=== PATIENT | female | born 1960 | race Caucasian/White ===

== ENCOUNTER 2017-11-15 00:01 | Inpatient (IN) | payer MEDICAID ==
[2017-11-15] VITALS (87 sets, daily range): BP systolic 119–232; BP diastolic 67–124
[~2017-11-15] VITALS: Ht 165.1 cm; Wt 94.6 kg
[2017-11-15] MEDS ORDERED: PIPERACILLIN/TAZ 3.375G PREMIX 50 ML IV ONE (00:30)
[2017-11-15] MEDS ORDERED: VANCOMYCIN 1 G PREMIX 200 ML IV ONE (00:30)
[2017-11-15] MEDS ORDERED: SODIUM CHLORIDE 0.9% 1000ML BAG (SEPSIS BOLUS) IV ONE (00:30)
[2017-11-15] MEDS ORDERED: PROPOFOL 10MG/ML 100ML 100 ML IV SCH (00:45)
[2017-11-15 00:49] LABS: HEMATOCRIT. 42.5 % (36.0-48.0); HEMOGLOBIN. 13.3 g/dL (12.0-16.0); MEAN CORPUSCULAR HEMOGLOBIN 28.2 pg (28.0-32.0); MEAN CORPUSCULAR VOLUME 90.4 fL (81.0-99.0); MEAN PLATELET VOLUME 9.1 fl (7.4-10.4); PLATELET 354 x1000/uL (130-400); RED CELL DISTRIBUTION WIDTH 14.5 % (11.6-14.6)
[2017-11-15 00:51] LABS: CHLORIDE 98 mEq/L (98-107)
[2017-11-15 00:54] LABS: INR 1.1
[2017-11-15 00:55] LABS: ETHANOL BLOOD < 10 mg/dL
[2017-11-15] MEDS ORDERED: SODIUM BICARBONATE 7.5% 0.9 MEQ/ML 50ML SYR IV ONE (01:00)
[2017-11-15] MEDS ORDERED: EPINEPHRINE 0.1MG/ML (1:10,000) 10ML SYR ONE (01:00)
[2017-11-15 01:09] LABS: CLARITY URINE CLOUDY (CLEAR); COLOR URINE YELLOW (YELLOW); KETONES URINE NEGATIVE (NEGATIVE); LEUKOCYTE ESTERASE URINE NEGATIVE (NEGATIVE); NITRITE URINE NEGATIVE (NEGATIVE); OCCULT BLOOD URINE 2+ (NEGATIVE); PROTEIN URINE 4+ (NEGATIVE); SPECIFIC GRAVITY URINE 1.016 (1.005-1.030); UROBILINOGEN URINE 0.2 E.U./dL (0.2-1.0)
[2017-11-15 01:14] LABS: BG BASE EXCESS -12.8 mmol/L (-2.0-2.0); BG CARBOXYHEMOGLOBIN 0.3 % (0.5-1.5); BG DEOXYHEMOGLOBIN 0.7 % (0.0-5.0); BG FRACTION INSPIRED OXYGEN 100; BG HCO3 ACT 16.9 mmol/L (22.0-26.0); BG METHEMOGLOBIN 0.5 % (0.0-1.5); BG OXYGEN SATURATION 99.3 % (92.0-98.5); BG OXYHEMOGLOBIN 98.5 % (94.0-97.0); BG PCO2 53.8 mmHg (35.0-45.0); BG PH 7.114 (7.350-7.450); BG PO2 340.9 mmHg (75.0-100.0); BG SAMPLE SITE RIGHT RADIAL; BG TIDAL VOLUME(mL) 500 mL; BG TOTAL HEMOGLOBIN 14.1 g/dL (12.0-18.0); BG VENT MODE VENT - A/C; BG VENT RATE 14 set
[2017-11-15 01:18] LABS: PLATELET ESTIMATE NORMAL
[2017-11-15 01:20] LABS: *AMPHETAMINES SCREEN URINE NEGATIVE (NEGATIVE); *BARBITURATES SCREEN URINE NEGATIVE (NEGATIVE); *BENZODIAZEPINES SCREEN URINE NEGATIVE (NEGATIVE); *COCAINE SCREEN URINE NEGATIVE (NEGATIVE); METHADONE URINE SCREEN NEGATIVE (NEGATIVE); OPIATES URINE SCREEN NEGATIVE (NEGATIVE)
[2017-11-15 01:21] LABS: CANNABINOID URINE SCREEN NEGATIVE (NEGATIVE); PHENCYCLIDINE URINE SCREEN NEGATIVE (NEGATIVE)
[2017-11-15] MEDS ORDERED: PIPERACILLIN/TAZOBACTAM 2.25 G in DEXTROSE 5% WATER 50 ML IV SCH (06:00)
[2017-11-15] MEDS ORDERED: ONDANSETRON HCL 4MG/2ML VIAL IV PRN (06:00)
[2017-11-15] MEDS ORDERED: DEXTROSE 50% WATER 50ML SYRINGE IV PRN ×3 (06:00→09:15)
[2017-11-15] MEDS ORDERED: METF500T6 MT (06:37)
[2017-11-15] MEDS ORDERED: TRIA1TAB92 MT (06:38)
[2017-11-15] MEDS ORDERED: LISI-604 MT (06:39)
[2017-11-15] MEDS ORDERED: METO25TA6 MT (06:39)
[2017-11-15] MEDS ORDERED: RANI150T7 MT (06:39)
[2017-11-15] MEDS ORDERED: FURO20TA4 MT (06:39)
[2017-11-15] MEDS ORDERED: ALBU6.7H IH (06:40)
[2017-11-15 07:50] LABS: BG BASE EXCESS 1.2 mmol/L (-2.0-2.0); BG CARBOXYHEMOGLOBIN 0.4 % (0.5-1.5); BG DEOXYHEMOGLOBIN 1.8 % (0.0-5.0); BG FRACTION INSPIRED OXYGEN 65; BG HCO3 ACT 28.8 mmol/L (22.0-26.0); BG METHEMOGLOBIN 0.4 % (0.0-1.5); BG OXYGEN SATURATION 98.2 % (92.0-98.5); BG OXYHEMOGLOBIN 97.4 % (94.0-97.0); BG PCO2 57.9 mmHg (35.0-45.0); BG PH 7.315 (7.350-7.450); BG PO2 124.6 mmHg (75.0-100.0); BG SAMPLE SITE RIGHT RADIAL; BG TIDAL VOLUME(mL) 500 mL; BG TOTAL HEMOGLOBIN 15.6 g/dL (12.0-18.0); BG VENT MODE VENT - A/C; BG VENT RATE 14 set
[2017-11-15] MEDS ORDERED: INSULIN LISPRO 100 UNITS/ML SUBCUT SCH (08:00)
[2017-11-15] MEDS ORDERED: BLOOD SUGAR DIAGNOSTIC STRIP TEST SCH (08:00)
[2017-11-15] MEDS: DEXT 5%/0.45% NACL 1000ML 1,000 ML IV SCH (08:22)
[2017-11-15] MEDS: PANTOPRAZOLE SODIUM 40 MG/VIAL IV SCH (08:22)
[2017-11-15] MEDS: VANCOMYCIN 1 G PREMIX 200 ML IV SCH ×2 (08:22→20:18)
[2017-11-15] MEDS: HYDRALAZINE 20MG/ML VIAL IV PRN (08:23)
[2017-11-15] MEDS ORDERED: PIPERACILLIN/TAZ 3.375G PREMIX 50 ML IV SCH (08:30)
[2017-11-15] MEDS ORDERED: MIDAZOLAM HCL 100 MG in DEXT 5% WATER 80 ML IV PRN (09:15)
[2017-11-15] MEDS ORDERED: NICARDIPINE 100 MG in SODIUM CHLORIDE 0.9% 60 ML IV PRN (09:15)
[2017-11-15] MEDS ORDERED: ENOXAPARIN 30MG/0.3ML SYR SUBCUT SCH (10:00)
[2017-11-15] MEDS: BLOOD SUGAR DIAGNOSTIC STRIP TEST SCH ×14 (10:00→23:00)
[2017-11-15] MEDS: NICARDIPINE 50 MG in SODIUM CHLORIDE 0.9% 230 ML IV PRN (10:32)
[2017-11-15] MEDS: FENTANYL CITRATE/PF 500 MCG in SODIUM CHLORIDE 0.9% 40 ML IV PRN (10:34)
[2017-11-15 10:57] LABS: MEAN CORPUSCULAR HEMOGLOBIN 28.1 pg (28.0-32.0); MEAN CORPUSCULAR VOLUME 86.5 fL (81.0-99.0); RED BLOOD CELL COUNT 5.54 mill/uL (4.2-5.4); RED CELL DISTRIBUTION WIDTH 14.3 % (11.6-14.6)
[2017-11-15] MEDS ORDERED: INSULIN REGULAR (DRIP) 100 UNITS in SODIUM CHLORIDE 0.9% 100 ML IV SCH (11:00)
[2017-11-15] MEDS: METOCLOPRAMIDE HCL 10MG/2ML VIAL IV SCH ×2 (11:04→18:15)
[2017-11-15 11:10] LABS: CHLORIDE 101 mEq/L (98-107)
[2017-11-15 11:20] LABS: HEMOGLOBIN. 15.3 g/dL (12.0-16.0)
[2017-11-15 11:42] LABS: HEPATITIS B SURFACE ANTIGEN NEGATIVE
[2017-11-15] MEDS: ACETAMINOPHEN 650MG SUPP PR PRN ×2 (12:01→18:15)
[2017-11-15 12:10] LABS: HEPATITIS B CORE AB IGM NEGATIVE
[2017-11-15 12:11] LABS: HEPATITIS A AB IGM NEGATIVE (NEGATIVE)
[2017-11-15 12:25] LABS: PLATELET 265 x1000/uL (130-400)
[2017-11-15 12:31] LABS: PLATELET ESTIMATE NORMAL
[2017-11-15] MEDS: ENOXAPARIN 30MG/0.3ML SYR SUBCUT SCH ×2 (13:00→23:30)
[2017-11-15] MEDS ORDERED: DILTIAZEM HCL 5MG/ML 5ML VIAL IV NR (13:30)
[2017-11-15] MEDS ORDERED: ETOMIDATE 2MG/ML 10ML VIAL IV ONE (13:45)
[2017-11-15] MEDS ORDERED: NORMAL SALINE 0.9% 10 ML SYR ONE (13:45)
[2017-11-15] MEDS ORDERED: SUCCINYLCHOLINE CHLORIDE 200MG/10ML VIAL IV ONE (13:45)
[2017-11-15 15:06] LABS: AMMONIA 39 uMol/L (<32)
[2017-11-15] MEDS: PIPERACILLIN/TAZ 3.375G PREMIX 50 ML IV SCH (18:15)
[2017-11-16] VITALS (69 sets, daily range): BP systolic 104–168; BP diastolic 54–84
[2017-11-16] MEDS: PIPERACILLIN/TAZ 3.375G PREMIX 50 ML IV SCH ×5 (00:54→23:52)
[2017-11-16] MEDS: METOCLOPRAMIDE HCL 10MG/2ML VIAL IV SCH ×5 (00:55→23:51)
[2017-11-16] MEDS: ACETAMINOPHEN 650MG SUPP PR PRN ×2 (00:56→08:41)
[2017-11-16] MEDS: BLOOD SUGAR DIAGNOSTIC STRIP TEST SCH ×12 (01:00→23:49)
[2017-11-16] MEDS: DEXT 5%/0.45% NACL 1000ML 1,000 ML IV SCH (05:12)
[2017-11-16 05:55] LABS: BASOPHILS % 0.1 % (0.0-2.0); HEMATOCRIT. 42.1 % (36.0-48.0); HEMOGLOBIN. 13.8 g/dL (12.0-16.0); LYMPHOCYTES % 7.7 % (20.0-50.0); MEAN CORPUSCULAR HEMOGLOBIN 28.1 pg (28.0-32.0); MEAN CORPUSCULAR VOLUME 86.1 fL (81.0-99.0); MONOCYTES % 4.2 % (2.0-8.0); PLATELET 271 x1000/uL (130-400); RED BLOOD CELL COUNT 4.89 mill/uL (4.2-5.4); RED CELL DISTRIBUTION WIDTH 14.7 % (11.6-14.6)
[2017-11-16] MEDS: PANTOPRAZOLE SODIUM 40 MG/VIAL IV SCH (08:41)
[2017-11-16] MEDS: VANCOMYCIN 1 G PREMIX 200 ML IV SCH (08:41)
[2017-11-16 08:58] LABS: BG BASE EXCESS 2.8 mmol/L (-2.0-2.0); BG CARBOXYHEMOGLOBIN 0.6 % (0.5-1.5); BG DEOXYHEMOGLOBIN 1.2 % (0.0-5.0); BG FRACTION INSPIRED OXYGEN 60; BG METHEMOGLOBIN 0.5 % (0.0-1.5); BG OXYGEN SATURATION 98.8 % (92.0-98.5); BG OXYHEMOGLOBIN 97.7 % (94.0-97.0); BG PCO2 63.9 mmHg (35.0-45.0); BG PH 7.304 (7.350-7.450); BG PO2 142.2 mmHg (75.0-100.0); BG SAMPLE SITE LEFT RADIAL; BG TIDAL VOLUME(mL) 500 mL; BG TOTAL HEMOGLOBIN 14.5 g/dL (12.0-18.0); BG VENT MODE VENT - A/C; BG VENT RATE 14 set
[2017-11-16] MEDS ORDERED: DEXTROSE 50% WATER 50ML SYRINGE IV PRN (09:15)
[2017-11-16] MEDS: INSULIN GLARGINE UD 100 UNITS/ML SYR SUBCUT SCH (11:38)
[2017-11-16] MEDS ORDERED: INSULIN LISPRO 100 UNITS/ML SUBCUT SCH (13:20)
[2017-11-16] MEDS: VANCOMYCIN 750 MG PREMIX 150 ML IV SCH ×2 (15:14→22:33)
[2017-11-16] MEDS ORDERED: PHENYTOIN SODIUM 1,000 MG in SODIUM CHLORIDE 0.9% 100 ML IV NR (20:30)
[2017-11-16] MEDS: NICARDIPINE 50 MG in SODIUM CHLORIDE 0.9% 230 ML IV PRN (20:44)
[2017-11-16] MEDS: FENTANYL CITRATE/PF 500 MCG in SODIUM CHLORIDE 0.9% 40 ML IV PRN (20:45)
[2017-11-16] MEDS: INSULIN LISPRO 100 UNITS/ML SUBCUT SCH (23:53)
[2017-11-17] VITALS (72 sets, daily range): BP systolic 101–175; BP diastolic 57–108
[2017-11-17] MEDS: ACETAMINOPHEN 650MG SUPP PR PRN ×2 (01:59→12:49)
[2017-11-17 04:12] LABS: CHLORIDE 102 mEq/L (98-107)
[2017-11-17 04:33] LABS: VANCOMYCIN TROUGH 21.5 ug/mL (5.0-10.0)
[2017-11-17] MEDS: INSULIN LISPRO 100 UNITS/ML SUBCUT SCH ×3 (06:00→18:00)
[2017-11-17] MEDS: PIPERACILLIN/TAZ 3.375G PREMIX 50 ML IV SCH ×3 (06:01→17:59)
[2017-11-17] MEDS: BLOOD SUGAR DIAGNOSTIC STRIP TEST SCH ×3 (06:02→18:00)
[2017-11-17] MEDS: VANCOMYCIN 750 MG PREMIX 150 ML IV SCH (06:04)
[2017-11-17] MEDS: METOCLOPRAMIDE HCL 10MG/2ML VIAL IV SCH ×3 (06:04→17:59)
[2017-11-17] MEDS: DEXT 5%/0.45% NACL 1000ML 1,000 ML IV SCH ×2 (06:05→17:45)
[2017-11-17 08:23] LABS: BG BASE EXCESS 5.9 mmol/L (-2.0-2.0); BG CARBOXYHEMOGLOBIN 0.1 % (0.5-1.5); BG FRACTION INSPIRED OXYGEN 50; BG HCO3 ACT 32.9 mmol/L (22.0-26.0); BG METHEMOGLOBIN 0.2 % (0.0-1.5); BG OXYHEMOGLOBIN 97.7 % (94.0-97.0); BG PCO2 59.5 mmHg (35.0-45.0); BG PH 7.361 (7.350-7.450); BG PO2 116.8 mmHg (75.0-100.0); BG SAMPLE SITE RIGHT RADIAL; BG TIDAL VOLUME(mL) 500 mL; BG TOTAL HEMOGLOBIN 12.7 g/dL (12.0-18.0); BG VENT MODE VENT - A/C; BG VENT RATE 16 set
[2017-11-17] MEDS ORDERED: IOHEXOL-350 100 ML BOTTLE ONE (09:40)
[2017-11-17] MEDS: PANTOPRAZOLE SODIUM 40 MG/VIAL IV SCH (09:48)
[2017-11-17] MEDS: INSULIN GLARGINE UD 100 UNITS/ML SYR SUBCUT SCH (09:49)
[2017-11-17] MEDS ORDERED: PHENYTOIN SODIUM 800 MG in SODIUM CHLORIDE 0.9% 100 ML IV NR (14:00)
[2017-11-17] MEDS: FENTANYL CITRATE/PF 500 MCG in SODIUM CHLORIDE 0.9% 40 ML IV PRN (18:26)
[2017-11-17] MEDS ORDERED: PHENYTOIN SODIUM 100MG/2ML VIAL IV SCH (21:00)
[2017-11-17] MEDS: PHENYTOIN SODIUM 300MG in SODIUM CHLORIDE 0.9% 50ML IV SCH (22:49)
[2017-11-18] VITALS (69 sets, daily range): BP systolic 111–205; BP diastolic 56–153
[2017-11-18] MEDS: METOCLOPRAMIDE HCL 10MG/2ML VIAL IV SCH ×4 (00:32→18:05)
[2017-11-18] MEDS: PIPERACILLIN/TAZ 3.375G PREMIX 50 ML IV SCH ×4 (00:32→18:05)
[2017-11-18] MEDS: BLOOD SUGAR DIAGNOSTIC STRIP TEST SCH ×4 (00:46→17:46)
[2017-11-18] MEDS: DEXT 5%/0.45% NACL 1000ML 1,000 ML IV SCH (05:21)
[2017-11-18 05:28] LABS: BASOPHILS % 0.2 % (0.0-2.0); EOSINOPHILS % 0.2 % (0.0-5.0); HEMATOCRIT. 33.9 % (36.0-48.0); HEMOGLOBIN. 11.3 g/dL (12.0-16.0); LYMPHOCYTES % 9.8 % (20.0-50.0); MEAN CORPUSCULAR HEMOGLOBIN 28.7 pg (28.0-32.0); MEAN CORPUSCULAR VOLUME 86.1 fL (81.0-99.0); MEAN PLATELET VOLUME 9.1 fl (7.4-10.4); MONOCYTES % 5.3 % (2.0-8.0); NEUTROPHILS % 84.5 % (40.0-76.0); PLATELET 215 x1000/uL (130-400); RED BLOOD CELL COUNT 3.94 mill/uL (4.2-5.4); RED CELL DISTRIBUTION WIDTH 14.7 % (11.6-14.6)
[2017-11-18] MEDS: INSULIN LISPRO 100 UNITS/ML SUBCUT SCH ×4 (05:33→17:46)
[2017-11-18 05:46] LABS: CHLORIDE 103 mEq/L (98-107)
[2017-11-18] MEDS: PANTOPRAZOLE SODIUM 40 MG/VIAL IV SCH (10:00)
[2017-11-18] MEDS: INSULIN GLARGINE UD 100 UNITS/ML SYR SUBCUT SCH (10:01)
[2017-11-18] MEDS: NICARDIPINE 50 MG in SODIUM CHLORIDE 0.9% 230 ML IV PRN ×2 (11:12→21:25)
[2017-11-18] MEDS ORDERED: MORPHINE SULFATE 4 MG/ML CPJ (NOT FOR IM USE) IV PRN (12:45)
[2017-11-18] MEDS: PHENYTOIN SODIUM 300MG in SODIUM CHLORIDE 0.9% 50ML IV SCH (21:04)
[2017-11-19] VITALS (80 sets, daily range): BP systolic 133–183; BP diastolic 67–99
[2017-11-19] MEDS: METOCLOPRAMIDE HCL 10MG/2ML VIAL IV SCH ×5 (01:01→23:12)
[2017-11-19] MEDS: PIPERACILLIN/TAZ 3.375G PREMIX 50 ML IV SCH ×5 (01:01→23:12)
[2017-11-19] MEDS: DEXT 5%/0.45% NACL 1000ML 1,000 ML IV SCH (01:02)
[2017-11-19] MEDS: INSULIN LISPRO 100 UNITS/ML SUBCUT SCH ×4 (05:10→17:10)
[2017-11-19] MEDS: BLOOD SUGAR DIAGNOSTIC STRIP TEST SCH ×5 (05:11→23:45)
[2017-11-19 07:56] LABS: BG BASE EXCESS 4.1 mmol/L (-2.0-2.0); BG CARBOXYHEMOGLOBIN 0.6 % (0.5-1.5); BG FRACTION INSPIRED OXYGEN 50; BG HCO3 ACT 29.5 mmol/L (22.0-26.0); BG METHEMOGLOBIN 0.3 % (0.0-1.5); BG OXYHEMOGLOBIN 97.1 % (94.0-97.0); BG PCO2 47.7 mmHg (35.0-45.0); BG PH 7.409 (7.350-7.450); BG PO2 107.5 mmHg (75.0-100.0); BG SAMPLE SITE RIGHT RADIAL; BG TIDAL VOLUME(mL) 500 mL; BG TOTAL HEMOGLOBIN 11.8 g/dL (12.0-18.0); BG VENT MODE VENT - A/C; BG VENT RATE 16 set
[2017-11-19] MEDS: PANTOPRAZOLE SODIUM 40 MG/VIAL IV SCH (08:35)
[2017-11-19] MEDS: NICARDIPINE 50 MG in SODIUM CHLORIDE 0.9% 230 ML IV PRN ×3 (08:37→20:11)
[2017-11-19] MEDS ORDERED: IPRATROPIUM/ALBUTEROL 0.5-3(2.5)MG/3ML NEB HHN PRN (08:45)
[2017-11-19] MEDS ORDERED: BISACODYL 5MG TABLET PO NR (09:10)
[2017-11-19 10:15] LABS: BASOPHILS % 0.4 % (0.0-2.0); EOSINOPHILS % 0.5 % (0.0-5.0); HEMATOCRIT. 34.2 % (36.0-48.0); HEMOGLOBIN. 11.4 g/dL (12.0-16.0); LYMPHOCYTES % 10.9 % (20.0-50.0); MEAN CORPUSCULAR HEMOGLOBIN 28.2 pg (28.0-32.0); MEAN CORPUSCULAR VOLUME 85.1 fL (81.0-99.0); MEAN PLATELET VOLUME 8.8 fl (7.4-10.4); MONOCYTES % 7.6 % (2.0-8.0); NEUTROPHILS % 80.6 % (40.0-76.0); PLATELET 280 x1000/uL (130-400); RED BLOOD CELL COUNT 4.02 mill/uL (4.2-5.4); RED CELL DISTRIBUTION WIDTH 14.3 % (11.6-14.6)
[2017-11-19 10:43] LABS: CHLORIDE 105 mEq/L (98-107)
[2017-11-19] MEDS: IPRATROPIUM/ALBUTEROL 0.5-3(2.5)MG/3ML NEB HHN SCH ×4 (11:19→23:43)
[2017-11-19] MEDS: ACETYLCYSTEINE 100MG/ML 10% VIAL 4ML INH SCH (11:20)
[2017-11-19] MEDS ORDERED: POTASSIUM CHLORIDE 20MEQ/PACKET PO SCH (11:45)
[2017-11-19] MEDS: DOCUSATE SODIUM SUGAR FREE 100MG/10ML UDC NG SCH (11:53)
[2017-11-19] MEDS: INSULIN GLARGINE UD 100 UNITS/ML SYR SUBCUT SCH (11:55)
[2017-11-19] MEDS: ACETAMINOPHEN 650MG/20.3ML UDC PO PRN (17:02)
[2017-11-19] MEDS: PHENYTOIN SODIUM 300MG in SODIUM CHLORIDE 0.9% 50ML IV SCH (20:55)
[2017-11-19] MEDS: HYDRALAZINE 20MG/ML VIAL IV PRN (23:45)
[2017-11-20] VITALS (83 sets, daily range): BP systolic 114–180; BP diastolic 57–98
[2017-11-20] MEDS ORDERED: ENALAPRIL 2.5MG/2ML VIAL 2ML IV PRN
[2017-11-20] MEDS: INSULIN LISPRO 100 UNITS/ML SUBCUT SCH ×5 (00:01→23:49)
[2017-11-20] MEDS: LABETALOL 5MG/ML SYR 20 MG/4 ML SYRINGE IV PRN (00:57)
[2017-11-20] MEDS: NICARDIPINE 50 MG in SODIUM CHLORIDE 0.9% 230 ML IV PRN ×4 (00:58→11:56)
[2017-11-20] MEDS: IPRATROPIUM/ALBUTEROL 0.5-3(2.5)MG/3ML NEB HHN SCH ×5 (04:04→20:39)
[2017-11-20] MEDS: PIPERACILLIN/TAZ 3.375G PREMIX 50 ML IV SCH ×2 (05:08→11:56)
[2017-11-20] MEDS: ACETAMINOPHEN 650MG SUPP PR PRN (05:08)
[2017-11-20] MEDS: METOCLOPRAMIDE HCL 10MG/2ML VIAL IV SCH ×4 (05:08→23:49)
[2017-11-20 06:09] LABS: BASOPHILS % 0.3 % (0.0-2.0); EOSINOPHILS % 0.1 % (0.0-5.0); HEMATOCRIT. 35.4 % (36.0-48.0); HEMOGLOBIN. 11.4 g/dL (12.0-16.0); LYMPHOCYTES % 7.5 % (20.0-50.0); MEAN CORPUSCULAR HEMOGLOBIN 27.5 pg (28.0-32.0); MEAN CORPUSCULAR VOLUME 85.4 fL (81.0-99.0); MEAN PLATELET VOLUME 9.2 fl (7.4-10.4); MONOCYTES % 4.3 % (2.0-8.0); NEUTROPHILS % 87.8 % (40.0-76.0); PLATELET 296 x1000/uL (130-400); RED BLOOD CELL COUNT 4.15 mill/uL (4.2-5.4); RED CELL DISTRIBUTION WIDTH 14.3 % (11.6-14.6)
[2017-11-20 06:23] LABS: CHLORIDE 105 mEq/L (98-107)
[2017-11-20 06:32] LABS: PHOSPHORUS 2.7 mg/dL (2.5-4.9)
[2017-11-20] MEDS: BLOOD SUGAR DIAGNOSTIC STRIP TEST SCH ×4 (06:49→23:49)
[2017-11-20] MEDS: ACETYLCYSTEINE 100MG/ML 10% VIAL 4ML INH SCH ×2 (07:59→15:37)
[2017-11-20] MEDS ORDERED: PHENYTOIN SODIUM IV SCH (09:00)
[2017-11-20] MEDS ORDERED: SODIUM CHLORIDE 0.9% IV SCH (09:00)
[2017-11-20] MEDS: DOCUSATE SODIUM SUGAR FREE 100MG/10ML UDC NG SCH (10:02)
[2017-11-20] MEDS: PANTOPRAZOLE SODIUM 40 MG/VIAL IV SCH (10:02)
[2017-11-20] MEDS: INSULIN GLARGINE UD 100 UNITS/ML SYR SUBCUT SCH (10:03)
[2017-11-20] MEDS: ENALAPRIL 1.25MG/ML VIAL 1ML IV SCH ×3 (10:55→20:51)
[2017-11-20] MEDS: HYDRALAZINE 20MG/ML VIAL IV SCH ×3 (11:56→23:49)
[2017-11-20] MEDS: CEFTRIAXONE 1 G PREMIX 50 ML IV SCH (14:16)
[2017-11-20] MEDS: METRONIDAZOLE 500MG TABLET PO SCH ×2 (14:17→20:51)
[2017-11-20] MEDS: PHENYTOIN SODIUM 300MG in SODIUM CHLORIDE 0.9% 50ML IV SCH (20:51)
[2017-11-21] VITALS (73 sets, daily range): BP systolic 108–192; BP diastolic 58–94
[2017-11-21] MEDS: IPRATROPIUM/ALBUTEROL 0.5-3(2.5)MG/3ML NEB HHN SCH ×6 (00:08→19:48)
[2017-11-21] MEDS: ACETYLCYSTEINE 100MG/ML 10% VIAL 4ML INH SCH ×3 (00:08→16:32)
[2017-11-21] MEDS: ENALAPRIL 1.25MG/ML VIAL 1ML IV SCH ×4 (03:10→21:54)
[2017-11-21 05:34] LABS: BASOPHILS % 0.4 % (0.0-2.0); EOSINOPHILS % 0.9 % (0.0-5.0); HEMATOCRIT. 36.1 % (36.0-48.0); HEMOGLOBIN. 11.6 g/dL (12.0-16.0); LYMPHOCYTES % 12.2 % (20.0-50.0); MEAN CORPUSCULAR HEMOGLOBIN 27.9 pg (28.0-32.0); MEAN CORPUSCULAR VOLUME 86.5 fL (81.0-99.0); MONOCYTES % 6.5 % (2.0-8.0); PLATELET 357 x1000/uL (130-400); RED BLOOD CELL COUNT 4.17 mill/uL (4.2-5.4); RED CELL DISTRIBUTION WIDTH 14.8 % (11.6-14.6)
[2017-11-21 05:41] LABS: CHLORIDE 109 mEq/L (98-107)
[2017-11-21 05:52] LABS: CREATINE KINASE 818 IU/L (26-192)
[2017-11-21] MEDS: INSULIN LISPRO 100 UNITS/ML SUBCUT SCH ×3 (06:00→17:50)
[2017-11-21] MEDS: HYDRALAZINE 20MG/ML VIAL IV SCH ×3 (06:14→17:54)
[2017-11-21] MEDS: BLOOD SUGAR DIAGNOSTIC STRIP TEST SCH ×3 (06:14→17:49)
[2017-11-21] MEDS: METOCLOPRAMIDE HCL 10MG/2ML VIAL IV SCH ×3 (06:14→17:53)
[2017-11-21 08:19] LABS: BG BASE EXCESS 3.2 mmol/L (-2.0-2.0); BG CARBOXYHEMOGLOBIN 0.2 % (0.5-1.5); BG DEOXYHEMOGLOBIN 2.3 % (0.0-5.0); BG FRACTION INSPIRED OXYGEN 40; BG HCO3 ACT 30.1 mmol/L (22.0-26.0); BG OXYGEN SATURATION 97.7 % (92.0-98.5); BG OXYHEMOGLOBIN 97.5 % (94.0-97.0); BG PCO2 54.7 mmHg (35.0-45.0); BG PH 7.359 (7.350-7.450); BG PO2 105.2 mmHg (75.0-100.0); BG SAMPLE SITE RIGHT RADIAL; BG TIDAL VOLUME(mL) 500 mL; BG TOTAL HEMOGLOBIN 15.6 g/dL (12.0-18.0); BG VENT MODE VENT - A/C; BG VENT RATE 16 set
[2017-11-21] MEDS: METRONIDAZOLE 500MG TABLET PO SCH ×2 (08:40→21:54)
[2017-11-21] MEDS: DOCUSATE SODIUM SUGAR FREE 100MG/10ML UDC NG SCH (08:40)
[2017-11-21] MEDS: PANTOPRAZOLE SODIUM 40 MG/VIAL IV SCH (08:40)
[2017-11-21] MEDS: INSULIN GLARGINE UD 100 UNITS/ML SYR SUBCUT SCH (10:19)
[2017-11-21] MEDS: LABETALOL 5MG/ML SYR 20 MG/4 ML SYRINGE IV PRN ×2 (10:20→16:27)
[2017-11-21] MEDS ORDERED: LACTULOSE 20G/30ML UDC PO NR (11:45)
[2017-11-21] MEDS ORDERED: NEOMY SULF/BACITRAC ZN/POLY OINT 28GM TOP SCH (13:30)
[2017-11-21] MEDS: CEFTRIAXONE 1 G PREMIX 50 ML IV SCH (14:30)
[2017-11-21] MEDS: NEO/POLYMYX B SULF/DEXAMETH OPHTH OINT 3.5GM EACHEYE SCH ×2 (15:33→21:54)
[2017-11-21] MEDS: PHENYTOIN SODIUM 300MG in SODIUM CHLORIDE 0.9% 50ML IV SCH (21:53)
[2017-11-22] VITALS (66 sets, daily range): BP systolic 116–170; BP diastolic 61–102
[2017-11-22] MEDS: METOCLOPRAMIDE HCL 10MG/2ML VIAL IV SCH ×4 (00:05→18:53)
[2017-11-22] MEDS: BLOOD SUGAR DIAGNOSTIC STRIP TEST SCH ×4 (00:05→17:50)
[2017-11-22] MEDS: HYDRALAZINE 20MG/ML VIAL IV SCH ×4 (00:05→18:54)
[2017-11-22] MEDS: INSULIN LISPRO 100 UNITS/ML SUBCUT SCH ×4 (00:06→18:55)
[2017-11-22] MEDS: ACETYLCYSTEINE 100MG/ML 10% VIAL 4ML INH SCH ×2 (00:21→12:30)
[2017-11-22] MEDS: IPRATROPIUM/ALBUTEROL 0.5-3(2.5)MG/3ML NEB HHN SCH ×6 (00:21→20:15)
[2017-11-22] MEDS: ENALAPRIL 1.25MG/ML VIAL 1ML IV SCH ×4 (04:47→21:38)
[2017-11-22 05:46] LABS: BASOPHILS % 0.4 % (0.0-2.0); EOSINOPHILS % 1.7 % (0.0-5.0); HEMATOCRIT. 35.7 % (36.0-48.0); HEMOGLOBIN. 11.4 g/dL (12.0-16.0); LYMPHOCYTES % 10.9 % (20.0-50.0); MEAN CORPUSCULAR HEMOGLOBIN 27.7 pg (28.0-32.0); MEAN CORPUSCULAR VOLUME 86.8 fL (81.0-99.0); MEAN PLATELET VOLUME 9.4 fl (7.4-10.4); MONOCYTES % 6.8 % (2.0-8.0); NEUTROPHILS % 80.2 % (40.0-76.0); PLATELET 406 x1000/uL (130-400); RED BLOOD CELL COUNT 4.12 mill/uL (4.2-5.4)
[2017-11-22 05:57] LABS: CHLORIDE 109 mEq/L (98-107)
[2017-11-22 06:13] LABS: CREATINE KINASE 334 IU/L (26-192)
[2017-11-22] MEDS: NEO/POLYMYX B SULF/DEXAMETH OPHTH OINT 3.5GM EACHEYE SCH ×2 (11:25→21:38)
[2017-11-22] MEDS: PANTOPRAZOLE SODIUM 40 MG/VIAL IV SCH (11:27)
[2017-11-22] MEDS: METRONIDAZOLE 500MG TABLET PO SCH ×2 (11:27→21:37)
[2017-11-22] MEDS: DOCUSATE SODIUM SUGAR FREE 100MG/10ML UDC NG SCH (11:28)
[2017-11-22] MEDS: INSULIN GLARGINE UD 100 UNITS/ML SYR SUBCUT SCH (11:38)
[2017-11-22] MEDS: CEFTRIAXONE 1 G PREMIX 50 ML IV SCH (15:21)
[2017-11-22] MEDS: PHENYTOIN SODIUM 300MG in SODIUM CHLORIDE 0.9% 50ML IV SCH (21:38)
[2017-11-23] VITALS (37 sets, daily range): BP systolic 113–155; BP diastolic 57–98
[2017-11-23] MEDS: IPRATROPIUM/ALBUTEROL 0.5-3(2.5)MG/3ML NEB HHN SCH ×6 (00:17→20:38)
[2017-11-23] MEDS: ACETYLCYSTEINE 100MG/ML 10% VIAL 4ML INH SCH ×3 (00:18→15:37)
[2017-11-23] MEDS: METOCLOPRAMIDE HCL 10MG/2ML VIAL IV SCH ×4 (00:53→17:52)
[2017-11-23] MEDS: BLOOD SUGAR DIAGNOSTIC STRIP TEST SCH ×4 (00:53→17:52)
[2017-11-23] MEDS: HYDRALAZINE 20MG/ML VIAL IV SCH ×4 (00:54→17:52)
[2017-11-23] MEDS: ENALAPRIL 1.25MG/ML VIAL 1ML IV SCH ×4 (03:30→21:47)
[2017-11-23 05:50] LABS: BASOPHILS % 0.8 % (0.0-2.0); EOSINOPHILS % 1.3 % (0.0-5.0); HEMATOCRIT. 35.9 % (36.0-48.0); HEMOGLOBIN. 11.4 g/dL (12.0-16.0); LYMPHOCYTES % 14.1 % (20.0-50.0); MEAN CORPUSCULAR HEMOGLOBIN 27.7 pg (28.0-32.0); MEAN PLATELET VOLUME 9.4 fl (7.4-10.4); MONOCYTES % 8.4 % (2.0-8.0); NEUTROPHILS % 75.4 % (40.0-76.0); PLATELET 433 x1000/uL (130-400); RED BLOOD CELL COUNT 4.12 mill/uL (4.2-5.4)
[2017-11-23] MEDS: INSULIN LISPRO 100 UNITS/ML SUBCUT SCH ×4 (06:00→17:53)
[2017-11-23 06:02] LABS: CHLORIDE 110 mEq/L (98-107)
[2017-11-23 06:05] LABS: PARTIAL THROMBOPLASTIN TIME 23.6 sec (23.4-31.0); PROTHROMBIN TIME 10.9 sec (9.4-11.6)
[2017-11-23 07:48] LABS: BG BASE EXCESS 4.7 mmol/L (-2.0-2.0); BG CARBOXYHEMOGLOBIN 0.3 % (0.5-1.5); BG DEOXYHEMOGLOBIN 2.6 % (0.0-5.0); BG FRACTION INSPIRED OXYGEN 40; BG HCO3 ACT 30.5 mmol/L (22.0-26.0); BG METHEMOGLOBIN 0.3 % (0.0-1.5); BG OXYGEN SATURATION 97.4 % (92.0-98.5); BG OXYHEMOGLOBIN 96.8 % (94.0-97.0); BG PCO2 50.5 mmHg (35.0-45.0); BG PH 7.399 (7.350-7.450); BG PO2 103.3 mmHg (75.0-100.0); BG SAMPLE SITE RIGHT BRACHIAL; BG TIDAL VOLUME(mL) 500 mL; BG TOTAL HEMOGLOBIN 12.6 g/dL (12.0-18.0); BG VENT MODE VENT - A/C; BG VENT RATE 16 set
[2017-11-23] MEDS: PANTOPRAZOLE SODIUM 40 MG/VIAL IV SCH ×2 (08:39→21:48)
[2017-11-23] MEDS: NEO/POLYMYX B SULF/DEXAMETH OPHTH OINT 3.5GM EACHEYE SCH (08:39)
[2017-11-23] MEDS: DOCUSATE SODIUM SUGAR FREE 100MG/10ML UDC NG SCH (08:40)
[2017-11-23] MEDS: METRONIDAZOLE 500MG TABLET PO SCH ×2 (08:40→21:47)
[2017-11-23] MEDS: INSULIN GLARGINE UD 100 UNITS/ML SYR SUBCUT SCH (11:01)
[2017-11-23] MEDS: CEFTRIAXONE 1 G PREMIX 50 ML IV SCH (14:53)
[2017-11-23] MEDS: ACETAMINOPHEN 650MG/20.3ML UDC PO PRN (20:32)
[2017-11-23] MEDS: PHENYTOIN SODIUM 300MG in SODIUM CHLORIDE 0.9% 50ML IV SCH (21:48)
[2017-11-24] VITALS (25 sets, daily range): BP systolic 100–155; BP diastolic 58–84
[2017-11-24] MEDS: ACETYLCYSTEINE 100MG/ML 10% VIAL 4ML INH SCH ×3 (00:03→16:51)
[2017-11-24] MEDS: IPRATROPIUM/ALBUTEROL 0.5-3(2.5)MG/3ML NEB HHN SCH ×6 (00:04→20:28)
[2017-11-24] MEDS: BLOOD SUGAR DIAGNOSTIC STRIP TEST SCH ×5 (00:39→23:45)
[2017-11-24] MEDS: HYDRALAZINE 20MG/ML VIAL IV SCH ×4 (00:40→18:00)
[2017-11-24] MEDS: METOCLOPRAMIDE HCL 10MG/2ML VIAL IV SCH ×4 (00:40→18:44)
[2017-11-24] MEDS: ENALAPRIL 1.25MG/ML VIAL 1ML IV SCH ×4 (03:35→21:31)
[2017-11-24 05:18] LABS: BASOPHILS % 0.7 % (0.0-2.0); EOSINOPHILS % 0.9 % (0.0-5.0); HEMATOCRIT. 35.8 % (36.0-48.0); HEMOGLOBIN. 11.5 g/dL (12.0-16.0); LYMPHOCYTES % 12.6 % (20.0-50.0); MEAN CORPUSCULAR HEMOGLOBIN 27.9 pg (28.0-32.0); MEAN CORPUSCULAR VOLUME 86.9 fL (81.0-99.0); MEAN PLATELET VOLUME 8.6 fl (7.4-10.4); MONOCYTES % 7.5 % (2.0-8.0); NEUTROPHILS % 78.3 % (40.0-76.0); PLATELET 456 x1000/uL (130-400); RED BLOOD CELL COUNT 4.12 mill/uL (4.2-5.4); RED CELL DISTRIBUTION WIDTH 14.7 % (11.6-14.6)
[2017-11-24 05:30] LABS: CHLORIDE 108 mEq/L (98-107)
[2017-11-24] MEDS: INSULIN LISPRO 100 UNITS/ML SUBCUT SCH ×5 (05:51→23:45)
[2017-11-24] MEDS: PANTOPRAZOLE SODIUM 40 MG/VIAL IV SCH ×2 (08:32→21:02)
[2017-11-24] MEDS: METRONIDAZOLE 500MG TABLET PO SCH ×2 (08:32→21:02)
[2017-11-24] MEDS: DOCUSATE SODIUM SUGAR FREE 100MG/10ML UDC NG SCH (08:32)
[2017-11-24 08:58] LABS: BG BASE EXCESS 0.4 mmol/L (-2.0-2.0); BG CARBOXYHEMOGLOBIN 0.8 % (0.5-1.5); BG DEOXYHEMOGLOBIN 5.6 % (0.0-5.0); BG FRACTION INSPIRED OXYGEN 40; BG HCO3 ACT 25.3 mmol/L (22.0-26.0); BG METHEMOGLOBIN 0.2 % (0.0-1.5); BG OXYGEN SATURATION 94.3 % (92.0-98.5); BG OXYHEMOGLOBIN 93.4 % (94.0-97.0); BG PCO2 41.8 mmHg (35.0-45.0); BG PH 7.399 (7.350-7.450); BG PO2 70.5 mmHg (75.0-100.0); BG SAMPLE SITE RIGHT RADIAL; BG TIDAL VOLUME(mL) 500 mL; BG TOTAL HEMOGLOBIN 12.4 g/dL (12.0-18.0); BG VENT MODE VENT - A/C; BG VENT RATE 16 set
[2017-11-24] MEDS: NEO/POLYMYX B SULF/DEXAMETH OPHTH OINT 3.5GM EACHEYE SCH ×2 (09:21→21:02)
[2017-11-24] MEDS: INSULIN GLARGINE UD 100 UNITS/ML SYR SUBCUT SCH (10:21)
[2017-11-24] MEDS: DEXT 5%/0.45% NACL 1000ML 1,000 ML IV SCH (12:30)
[2017-11-24] MEDS ORDERED: PHENYTOIN SODIUM 600 MG in SODIUM CHLORIDE 0.9% 100 ML IV NR (13:30)
[2017-11-24] MEDS ORDERED: MIDAZOLAM HCL 5 MG/5 ML VIAL ONE (13:53)
[2017-11-24] MEDS ORDERED: FENTANYL CITRATE/PF 50MCG/ML 2ML VIAL ONE (13:54)
[2017-11-24] MEDS: CEFTRIAXONE 1 G PREMIX 50 ML IV SCH (14:37)
[2017-11-24] MEDS: ACETAMINOPHEN 650MG/20.3ML UDC PO PRN (16:47)
[2017-11-24] MEDS ORDERED: LACTULOSE 20G/30ML UDC PO NR (18:00)
[2017-11-24] MEDS: PHENYTOIN SODIUM 200 MG in SODIUM CHLORIDE 0.9% 50 ML IV SCH (21:02)
[2017-11-25] VITALS (24 sets, daily range): BP systolic 97–132; BP diastolic 55–74
[2017-11-25] MEDS: ACETAMINOPHEN 650MG/20.3ML UDC PO PRN ×2 (00:06→18:09)
[2017-11-25] MEDS: HYDRALAZINE 20MG/ML VIAL IV SCH ×4 (00:06→17:53)
[2017-11-25] MEDS: METOCLOPRAMIDE HCL 10MG/2ML VIAL IV SCH ×4 (00:06→17:53)
[2017-11-25] MEDS: IPRATROPIUM/ALBUTEROL 0.5-3(2.5)MG/3ML NEB HHN SCH ×6 (01:09→20:12)
[2017-11-25] MEDS: ENALAPRIL 1.25MG/ML VIAL 1ML IV SCH ×4 (02:55→20:07)
[2017-11-25] MEDS: DEXT 5%/0.45% NACL 1000ML 1,000 ML IV SCH ×2 (02:55→19:54)
[2017-11-25] MEDS: INSULIN LISPRO 100 UNITS/ML SUBCUT SCH ×3 (05:17→17:53)
[2017-11-25] MEDS: BLOOD SUGAR DIAGNOSTIC STRIP TEST SCH ×3 (05:17→17:08)
[2017-11-25 05:26] LABS: BASOPHILS % 0.5 % (0.0-2.0); EOSINOPHILS % 1.4 % (0.0-5.0); HEMATOCRIT. 33.1 % (36.0-48.0); HEMOGLOBIN. 10.6 g/dL (12.0-16.0); LYMPHOCYTES % 12.4 % (20.0-50.0); MEAN PLATELET VOLUME 8.6 fl (7.4-10.4); MONOCYTES % 6.9 % (2.0-8.0); NEUTROPHILS % 78.8 % (40.0-76.0); PLATELET 453 x1000/uL (130-400); RED CELL DISTRIBUTION WIDTH 14.7 % (11.6-14.6)
[2017-11-25 05:29] LABS: CHLORIDE 110 mEq/L (98-107)
[2017-11-25 05:37] LABS: PHOSPHORUS 3.1 mg/dL (2.5-4.9)
[2017-11-25] MEDS: METRONIDAZOLE 500MG TABLET PO SCH ×2 (08:08→20:08)
[2017-11-25] MEDS: PANTOPRAZOLE SODIUM 40 MG/VIAL IV SCH ×2 (08:08→20:08)
[2017-11-25] MEDS: DOCUSATE SODIUM SUGAR FREE 100MG/10ML UDC NG SCH (08:08)
[2017-11-25] MEDS: NEO/POLYMYX B SULF/DEXAMETH OPHTH OINT 3.5GM EACHEYE SCH ×2 (08:09→21:00)
[2017-11-25] MEDS: PHENYTOIN SODIUM 200 MG in SODIUM CHLORIDE 0.9% 50 ML IV SCH ×2 (08:09→20:08)
[2017-11-25] MEDS: INSULIN GLARGINE UD 100 UNITS/ML SYR SUBCUT SCH (09:52)
[2017-11-25] MEDS: CEFTRIAXONE 1 G PREMIX 50 ML IV SCH (14:52)
[2017-11-25] MEDS ORDERED: PHENYTOIN SODIUM 700 MG in SODIUM CHLORIDE 0.9% 100 ML IV NR (15:00)
[2017-11-25 19:12] LABS: HEMATOCRIT. 32.2 % (36.0-48.0); HEMOGLOBIN. 10.4 g/dL (12.0-16.0); MEAN CORPUSCULAR HEMOGLOBIN 28.3 pg (28.0-32.0); MEAN CORPUSCULAR VOLUME 87.3 fL (81.0-99.0); PLATELET 431 x1000/uL (130-400); RED BLOOD CELL COUNT 3.69 mill/uL (4.2-5.4); RED CELL DISTRIBUTION WIDTH 14.8 % (11.6-14.6)
[2017-11-25 19:49] LABS: PLATELET ESTIMATE INCREASED
[2017-11-25] MEDS ORDERED: PHENYTOIN SODIUM 100MG/2ML VIAL IV ONE (20:08)
[2017-11-26] VITALS (13 sets, daily range): BP systolic 114–134; BP diastolic 60–80
[2017-11-26] MEDS: IPRATROPIUM/ALBUTEROL 0.5-3(2.5)MG/3ML NEB HHN SCH ×6 (00:15→19:56)
[2017-11-26] MEDS: INSULIN LISPRO 100 UNITS/ML SUBCUT SCH ×4 (00:22→17:54)
[2017-11-26] MEDS: METOCLOPRAMIDE HCL 10MG/2ML VIAL IV SCH ×5 (00:26→23:52)
[2017-11-26] MEDS: BLOOD SUGAR DIAGNOSTIC STRIP TEST SCH ×5 (00:29→23:48)
[2017-11-26] MEDS: ENALAPRIL 1.25MG/ML VIAL 1ML IV SCH ×4 (03:34→20:29)
[2017-11-26] MEDS: HYDRALAZINE 20MG/ML VIAL IV SCH ×5 (06:20→23:53)
[2017-11-26 06:30] LABS: BASOPHILS % 0.6 % (0.0-2.0); HEMATOCRIT. 32.2 % (36.0-48.0); HEMOGLOBIN. 10.2 g/dL (12.0-16.0); LYMPHOCYTES % 13.3 % (20.0-50.0); MEAN CORPUSCULAR HEMOGLOBIN 27.7 pg (28.0-32.0); MEAN CORPUSCULAR VOLUME 87.7 fL (81.0-99.0); MEAN PLATELET VOLUME 8.7 fl (7.4-10.4); MONOCYTES % 7.5 % (2.0-8.0); NEUTROPHILS % 76.6 % (40.0-76.0); PLATELET 407 x1000/uL (130-400); RED BLOOD CELL COUNT 3.67 mill/uL (4.2-5.4)
[2017-11-26 07:15] LABS: CHLORIDE 111 mEq/L (98-107)
[2017-11-26] MEDS: PHENYTOIN SODIUM 200 MG in SODIUM CHLORIDE 0.9% 50 ML IV SCH (08:19)
[2017-11-26] MEDS: DOCUSATE SODIUM SUGAR FREE 100MG/10ML UDC NG SCH (08:19)
[2017-11-26] MEDS: PANTOPRAZOLE SODIUM 40 MG/VIAL IV SCH (08:19)
[2017-11-26] MEDS: METRONIDAZOLE 500MG TABLET PO SCH ×2 (08:20→20:28)
[2017-11-26] MEDS ORDERED: PHENYTOIN SODIUM 500 MG in SODIUM CHLORIDE 0.9% 100 ML IV SCH (11:00)
[2017-11-26] MEDS: INSULIN GLARGINE UD 100 UNITS/ML SYR SUBCUT SCH (12:33)
[2017-11-26] MEDS: CEFTRIAXONE 1 G PREMIX 50 ML IV SCH (14:16)
[2017-11-26] MEDS: ACETAMINOPHEN 650MG/20.3ML UDC PO PRN (15:20)
[2017-11-26] MEDS: FAMOTIDINE 20MG/2ML VIAL IV SCH (20:28)
[2017-11-27] VITALS (12 sets, daily range): BP systolic 112–137; BP diastolic 55–70
[2017-11-27] MEDS: IPRATROPIUM/ALBUTEROL 0.5-3(2.5)MG/3ML NEB HHN SCH ×6 (00:20→20:53)
[2017-11-27] MEDS: ENALAPRIL 1.25MG/ML VIAL 1ML IV SCH ×4 (03:13→21:47)
[2017-11-27] MEDS: HYDRALAZINE 20MG/ML VIAL IV SCH ×3 (05:38→17:24)
[2017-11-27] MEDS: METOCLOPRAMIDE HCL 10MG/2ML VIAL IV SCH ×3 (05:38→17:24)
[2017-11-27] MEDS: BLOOD SUGAR DIAGNOSTIC STRIP TEST SCH ×3 (05:46→17:22)
[2017-11-27] MEDS: INSULIN LISPRO 100 UNITS/ML SUBCUT SCH ×4 (05:50→17:26)
[2017-11-27 06:14] LABS: BASOPHILS % 0.5 % (0.0-2.0); EOSINOPHILS % 1.4 % (0.0-5.0); HEMATOCRIT. 32.1 % (36.0-48.0); HEMOGLOBIN. 10.2 g/dL (12.0-16.0); LYMPHOCYTES % 12.6 % (20.0-50.0); MEAN PLATELET VOLUME 9.2 fl (7.4-10.4); MONOCYTES % 7.1 % (2.0-8.0); NEUTROPHILS % 78.4 % (40.0-76.0); PLATELET 411 x1000/uL (130-400); RED BLOOD CELL COUNT 3.65 mill/uL (4.2-5.4); RED CELL DISTRIBUTION WIDTH 14.5 % (11.6-14.6)
[2017-11-27 06:41] LABS: CHLORIDE 108 mEq/L (98-107)
[2017-11-27] MEDS: METRONIDAZOLE 500MG TABLET PO SCH (08:20)
[2017-11-27] MEDS: FAMOTIDINE 20MG/2ML VIAL IV SCH ×2 (08:20→21:48)
[2017-11-27] MEDS: DOCUSATE SODIUM SUGAR FREE 100MG/10ML UDC NG SCH (08:21)
[2017-11-27] MEDS: PHENYTOIN SODIUM 100MG/2ML VIAL IV SCH ×2 (08:28→21:48)
[2017-11-27] MEDS: INSULIN GLARGINE UD 100 UNITS/ML SYR SUBCUT SCH (10:34)
[2017-11-27] MEDS: ACETAMINOPHEN 650MG/20.3ML UDC PO PRN ×2 (11:15→16:23)
[2017-11-27] MEDS: CEFTRIAXONE 1 G PREMIX 50 ML IV SCH (13:42)
[2017-11-27] MEDS ORDERED: PHENYTOIN SODIUM 500 MG in SODIUM CHLORIDE 0.9% 100 ML IV NR (16:00)
[2017-11-28] VITALS (12 sets, daily range): BP systolic 111–142; BP diastolic 58–75
[2017-11-28] MEDS: IPRATROPIUM/ALBUTEROL 0.5-3(2.5)MG/3ML NEB HHN SCH ×6 (00:10→20:10)
[2017-11-28] MEDS: BLOOD SUGAR DIAGNOSTIC STRIP TEST SCH ×4 (00:18→17:12)
[2017-11-28] MEDS: METOCLOPRAMIDE HCL 10MG/2ML VIAL IV SCH ×4 (00:18→18:14)
[2017-11-28] MEDS: HYDRALAZINE 20MG/ML VIAL IV SCH ×4 (00:18→18:14)
[2017-11-28] MEDS: ENALAPRIL 1.25MG/ML VIAL 1ML IV SCH ×4 (03:34→21:40)
[2017-11-28] MEDS: ACETAMINOPHEN 650MG/20.3ML UDC PO PRN ×3 (03:58→18:13)
[2017-11-28] MEDS: INSULIN LISPRO 100 UNITS/ML SUBCUT SCH ×4 (06:00→17:12)
[2017-11-28] MEDS: FAMOTIDINE 20MG/2ML VIAL IV SCH ×2 (08:33→21:41)
[2017-11-28] MEDS: PHENYTOIN SODIUM 100MG/2ML VIAL IV SCH ×2 (08:34→21:41)
[2017-11-28] MEDS: DOCUSATE SODIUM SUGAR FREE 100MG/10ML UDC NG SCH (08:34)
[2017-11-28] MEDS: INSULIN GLARGINE UD 100 UNITS/ML SYR SUBCUT SCH (12:05)
[2017-11-29] VITALS (12 sets, daily range): BP systolic 101–146; BP diastolic 57–80
[2017-11-29] MEDS: METOCLOPRAMIDE HCL 10MG/2ML VIAL IV SCH ×4 (00:23→18:16)
[2017-11-29] MEDS: HYDRALAZINE 20MG/ML VIAL IV SCH ×4 (00:23→18:17)
[2017-11-29] MEDS: BLOOD SUGAR DIAGNOSTIC STRIP TEST SCH ×4 (00:23→18:13)
[2017-11-29] MEDS: IPRATROPIUM/ALBUTEROL 0.5-3(2.5)MG/3ML NEB HHN SCH ×7 (00:30→23:45)
[2017-11-29] MEDS: ENALAPRIL 1.25MG/ML VIAL 1ML IV SCH ×4 (03:29→20:54)
[2017-11-29] MEDS: INSULIN LISPRO 100 UNITS/ML SUBCUT SCH ×4 (06:00→18:00)
[2017-11-29] MEDS: PHENYTOIN SODIUM 100MG/2ML VIAL IV SCH ×2 (08:47→20:55)
[2017-11-29] MEDS: DOCUSATE SODIUM SUGAR FREE 100MG/10ML UDC NG SCH (08:48)
[2017-11-29] MEDS: ACETAMINOPHEN 650MG/20.3ML UDC PO PRN (08:48)
[2017-11-29] MEDS: LACTOBACILLUS GG CAPSULE PO SCH (08:48)
[2017-11-29] MEDS: FAMOTIDINE 20MG/2ML VIAL IV SCH ×2 (08:48→20:53)
[2017-11-29] MEDS: INSULIN GLARGINE UD 100 UNITS/ML SYR SUBCUT SCH (10:31)
[2017-11-30] VITALS (12 sets, daily range): BP systolic 101–140; BP diastolic 58–81
[2017-11-30] MEDS: METOCLOPRAMIDE HCL 10MG/2ML VIAL IV SCH ×4 (00:40→17:21)
[2017-11-30] MEDS: BLOOD SUGAR DIAGNOSTIC STRIP TEST SCH ×4 (00:41→17:09)
[2017-11-30] MEDS: IPRATROPIUM/ALBUTEROL 0.5-3(2.5)MG/3ML NEB HHN SCH ×5 (03:44→19:57)
[2017-11-30] MEDS: ENALAPRIL 1.25MG/ML VIAL 1ML IV SCH ×4 (04:40→21:59)
[2017-11-30] MEDS: INSULIN LISPRO 100 UNITS/ML SUBCUT SCH ×4 (06:00→17:09)
[2017-11-30] MEDS: HYDRALAZINE 20MG/ML VIAL IV SCH ×4 (06:24→17:22)
[2017-11-30 06:50] LABS: BASOPHILS % 0.6 % (0.0-2.0); EOSINOPHILS % 2.2 % (0.0-5.0); HEMATOCRIT. 33.1 % (36.0-48.0); HEMOGLOBIN. 10.6 g/dL (12.0-16.0); LYMPHOCYTES % 14.6 % (20.0-50.0); MEAN CORPUSCULAR HEMOGLOBIN 28.1 pg (28.0-32.0); MEAN CORPUSCULAR VOLUME 87.6 fL (81.0-99.0); MEAN PLATELET VOLUME 9.5 fl (7.4-10.4); MONOCYTES % 9.8 % (2.0-8.0); NEUTROPHILS % 72.8 % (40.0-76.0); PLATELET 376 x1000/uL (130-400); RED BLOOD CELL COUNT 3.78 mill/uL (4.2-5.4)
[2017-11-30 08:01] LABS: CHLORIDE 104 mEq/L (98-107)
[2017-11-30] MEDS: FAMOTIDINE 20MG/2ML VIAL IV SCH ×2 (08:52→21:58)
[2017-11-30] MEDS: DOCUSATE SODIUM SUGAR FREE 100MG/10ML UDC NG SCH (08:52)
[2017-11-30] MEDS: LACTOBACILLUS GG CAPSULE PO SCH (08:52)
[2017-11-30] MEDS: PHENYTOIN SODIUM 100MG/2ML VIAL IV SCH ×2 (10:55→21:41)
[2017-11-30] MEDS: INSULIN GLARGINE UD 100 UNITS/ML SYR SUBCUT SCH (10:56)
[2017-11-30] MEDS ORDERED: LACTULOSE 20G/30ML UDC PO SCH (11:00)
[2017-11-30] MEDS ORDERED: PHENYTOIN SODIUM 500 MG in SODIUM CHLORIDE 0.9% 50 ML IV NR (12:00)
[2017-12-01] VITALS (12 sets, daily range): BP systolic 97–131; BP diastolic 56–74
[2017-12-01] MEDS: ACETAMINOPHEN 650MG/20.3ML UDC PO PRN (00:09)
[2017-12-01] MEDS: BLOOD SUGAR DIAGNOSTIC STRIP TEST SCH ×4 (00:10→18:22)
[2017-12-01] MEDS: METOCLOPRAMIDE HCL 10MG/2ML VIAL IV SCH ×4 (00:10→18:16)
[2017-12-01] MEDS: IPRATROPIUM/ALBUTEROL 0.5-3(2.5)MG/3ML NEB HHN SCH ×6 (00:38→20:48)
[2017-12-01] MEDS: HYDRALAZINE 20MG/ML VIAL IV SCH ×4 (00:40→18:00)
[2017-12-01] MEDS: ENALAPRIL 1.25MG/ML VIAL 1ML IV SCH ×4 (03:05→20:53)
[2017-12-01] MEDS: INSULIN LISPRO 100 UNITS/ML SUBCUT SCH ×4 (06:00→18:00)
[2017-12-01] MEDS: DOCUSATE SODIUM SUGAR FREE 100MG/10ML UDC NG SCH (08:53)
[2017-12-01] MEDS: LACTOBACILLUS GG CAPSULE PO SCH (08:53)
[2017-12-01] MEDS: PHENYTOIN SODIUM 100MG/2ML VIAL IV SCH (08:54)
[2017-12-01] MEDS: FAMOTIDINE 20MG/2ML VIAL IV SCH ×2 (08:54→20:54)
[2017-12-01] MEDS: INSULIN GLARGINE UD 100 UNITS/ML SYR SUBCUT SCH (09:39)
[2017-12-01] MEDS: LEVETIRACETAM 500MG PREMIX 100 ML IV SCH ×2 (12:14→20:54)
[2017-12-02] VITALS (12 sets, daily range): BP systolic 110–123; BP diastolic 56–74
[2017-12-02] MEDS: IPRATROPIUM/ALBUTEROL 0.5-3(2.5)MG/3ML NEB HHN SCH ×5 (00:35→20:16)
[2017-12-02] MEDS: METOCLOPRAMIDE HCL 10MG/2ML VIAL IV SCH ×4 (00:39→17:41)
[2017-12-02] MEDS: BLOOD SUGAR DIAGNOSTIC STRIP TEST SCH ×4 (00:39→18:46)
[2017-12-02] MEDS: HYDRALAZINE 20MG/ML VIAL IV SCH ×4 (00:40→17:41)
[2017-12-02] MEDS: ACETAMINOPHEN 650MG/20.3ML UDC PO PRN (00:41)
[2017-12-02] MEDS: ENALAPRIL 1.25MG/ML VIAL 1ML IV SCH ×4 (02:51→21:00)
[2017-12-02] MEDS: INSULIN LISPRO 100 UNITS/ML SUBCUT SCH ×4 (05:55→18:00)
[2017-12-02] MEDS: LEVETIRACETAM 500MG PREMIX 100 ML IV SCH ×2 (09:18→21:35)
[2017-12-02] MEDS: DOCUSATE SODIUM SUGAR FREE 100MG/10ML UDC NG SCH (09:18)
[2017-12-02] MEDS: LACTOBACILLUS GG CAPSULE PO SCH (09:19)
[2017-12-02] MEDS: FAMOTIDINE 20MG/2ML VIAL IV SCH ×2 (09:19→21:36)
[2017-12-02] MEDS: INSULIN GLARGINE UD 100 UNITS/ML SYR SUBCUT SCH (09:34)
[2017-12-03] VITALS (12 sets, daily range): BP systolic 115–155; BP diastolic 54–92
[2017-12-03] MEDS: METOCLOPRAMIDE HCL 10MG/2ML VIAL IV SCH ×5 (00:08→23:57)
[2017-12-03] MEDS: BLOOD SUGAR DIAGNOSTIC STRIP TEST SCH ×5 (00:08→23:58)
[2017-12-03] MEDS: HYDRALAZINE 20MG/ML VIAL IV SCH ×5 (00:08→23:57)
[2017-12-03] MEDS: IPRATROPIUM/ALBUTEROL 0.5-3(2.5)MG/3ML NEB HHN SCH ×7 (00:25→23:45)
[2017-12-03] MEDS: ENALAPRIL 1.25MG/ML VIAL 1ML IV SCH ×4 (03:19→21:41)
[2017-12-03] MEDS: ACETAMINOPHEN 650MG/20.3ML UDC PO PRN ×3 (03:31→19:57)
[2017-12-03] MEDS: INSULIN LISPRO 100 UNITS/ML SUBCUT SCH ×5 (05:20→23:58)
[2017-12-03] MEDS: FAMOTIDINE 20MG/2ML VIAL IV SCH ×2 (08:49→21:41)
[2017-12-03] MEDS: DOCUSATE SODIUM SUGAR FREE 100MG/10ML UDC NG SCH (08:49)
[2017-12-03] MEDS: LEVETIRACETAM 500MG PREMIX 100 ML IV SCH ×2 (08:50→21:41)
[2017-12-03] MEDS: LACTOBACILLUS GG CAPSULE PO SCH (08:50)
[2017-12-03] MEDS: INSULIN GLARGINE UD 100 UNITS/ML SYR SUBCUT SCH (10:10)
[2017-12-03 10:41] LABS: HEMATOCRIT 31.6 % (36.0-48.0); HEMOGLOBIN 10.1 g/dL (12.0-16.0); MEAN CORPUSCULAR HEMOGLOBIN 28.1 pg (28.0-32.0); MEAN CORPUSCULAR VOLUME 87.7 fL (81.0-99.0); PLATELET 404 x1000/uL (130-400); RED BLOOD CELL COUNT 3.61 mill/uL (4.2-5.4); RED CELL DISTRIBUTION WIDTH 15.5 % (11.6-14.6)
[2017-12-03 11:05] LABS: CHLORIDE 108 mEq/L (98-107)
[2017-12-03 12:09] LABS: CLARITY URINE CLEAR (CLEAR); COLOR URINE DARK YELLOW (YELLOW); KETONES URINE NEGATIVE (NEGATIVE); LEUKOCYTE ESTERASE URINE TRACE (NEGATIVE); NITRITE URINE NEGATIVE (NEGATIVE); OCCULT BLOOD URINE TRACE (NEGATIVE); PROTEIN URINE 1+ (NEGATIVE); SPECIFIC GRAVITY URINE 1.026 (1.005-1.030)
[2017-12-04] VITALS (12 sets, daily range): BP systolic 114–143; BP diastolic 48–84
[2017-12-04] MEDS: ENALAPRIL 1.25MG/ML VIAL 1ML IV SCH ×4 (04:02→22:09)
[2017-12-04] MEDS: IPRATROPIUM/ALBUTEROL 0.5-3(2.5)MG/3ML NEB HHN SCH ×5 (04:09→20:29)
[2017-12-04] MEDS: METOCLOPRAMIDE HCL 10MG/2ML VIAL IV SCH ×4 (05:16→23:24)
[2017-12-04] MEDS: INSULIN LISPRO 100 UNITS/ML SUBCUT SCH ×4 (05:16→23:30)
[2017-12-04] MEDS: BLOOD SUGAR DIAGNOSTIC STRIP TEST SCH ×4 (05:16→23:30)
[2017-12-04] MEDS: HYDRALAZINE 20MG/ML VIAL IV SCH ×4 (05:16→23:25)
[2017-12-04] MEDS: ACETAMINOPHEN 650MG/20.3ML UDC PO PRN (05:18)
[2017-12-04] MEDS: LACTOBACILLUS GG CAPSULE PO SCH (08:44)
[2017-12-04] MEDS: FAMOTIDINE 20MG/2ML VIAL IV SCH ×2 (08:44→22:02)
[2017-12-04] MEDS: DOCUSATE SODIUM SUGAR FREE 100MG/10ML UDC NG SCH (08:44)
[2017-12-04] MEDS: LEVETIRACETAM 500MG PREMIX 100 ML IV SCH ×2 (08:45→22:02)
[2017-12-04] MEDS ORDERED: DEXT 5%/0.45% NACL 500ML 500 ML IV ONE (10:30)
[2017-12-04] MEDS: INSULIN GLARGINE UD 100 UNITS/ML SYR SUBCUT SCH (11:22)
[2017-12-05] VITALS (12 sets, daily range): BP systolic 116–146; BP diastolic 60–83
[2017-12-05] MEDS: IPRATROPIUM/ALBUTEROL 0.5-3(2.5)MG/3ML NEB HHN SCH ×6 (00:28→20:39)
[2017-12-05] MEDS: ENALAPRIL 1.25MG/ML VIAL 1ML IV SCH ×4 (03:00→21:06)
[2017-12-05] MEDS: INSULIN LISPRO 100 UNITS/ML SUBCUT SCH ×3 (05:54→17:55)
[2017-12-05] MEDS: METOCLOPRAMIDE HCL 10MG/2ML VIAL IV SCH ×3 (05:54→17:44)
[2017-12-05] MEDS: BLOOD SUGAR DIAGNOSTIC STRIP TEST SCH ×3 (05:54→17:45)
[2017-12-05] MEDS: HYDRALAZINE 20MG/ML VIAL IV SCH ×3 (05:55→17:44)
[2017-12-05 07:15] LABS: CHLORIDE 110 mEq/L (98-107)
[2017-12-05 07:20] LABS: BASOPHILS % 0.9 % (0.0-2.0); EOSINOPHILS % 2.2 % (0.0-5.0); HEMATOCRIT. 30.8 % (36.0-48.0); HEMOGLOBIN. 9.8 g/dL (12.0-16.0); LYMPHOCYTES % 13.4 % (20.0-50.0); MEAN CORPUSCULAR HEMOGLOBIN 28.5 pg (28.0-32.0); MEAN CORPUSCULAR VOLUME 89.1 fL (81.0-99.0); MEAN PLATELET VOLUME 9.9 fl (7.4-10.4); MONOCYTES % 8.1 % (2.0-8.0); NEUTROPHILS % 75.4 % (40.0-76.0); PLATELET 380 x1000/uL (130-400); RED BLOOD CELL COUNT 3.45 mill/uL (4.2-5.4); RED CELL DISTRIBUTION WIDTH 15.5 % (11.6-14.6)
[2017-12-05] MEDS: LACTOBACILLUS GG CAPSULE PO SCH (09:53)
[2017-12-05] MEDS: FAMOTIDINE 20MG/2ML VIAL IV SCH ×2 (09:53→21:04)
[2017-12-05] MEDS: DOCUSATE SODIUM SUGAR FREE 100MG/10ML UDC NG SCH (09:54)
[2017-12-05] MEDS: INSULIN GLARGINE UD 100 UNITS/ML SYR SUBCUT SCH (09:58)
[2017-12-05] MEDS: LEVETIRACETAM 500MG PREMIX 100 ML IV SCH (10:01)
[2017-12-05] MEDS ORDERED: VANCOMYCIN 2,000 MG in DEXT 5% WATER 500 ML IV NR (21:00)
[2017-12-05] MEDS: CEFEPIME 1,000 MG in DEXTROSE 5% WATER 50 ML IV SCH (21:04)
[2017-12-05] MEDS: LEVETIRACETAM 500MG in SODIUM CHLORIDE 0.9% 100ML IV SCH (21:04)
[2017-12-06] VITALS (10 sets, daily range): BP systolic 117–147; BP diastolic 61–82
[2017-12-06] MEDS: HYDRALAZINE 20MG/ML VIAL IV SCH ×4 (00:28→18:45)
[2017-12-06] MEDS: METOCLOPRAMIDE HCL 10MG/2ML VIAL IV SCH ×4 (00:28→18:44)
[2017-12-06] MEDS: IPRATROPIUM/ALBUTEROL 0.5-3(2.5)MG/3ML NEB HHN SCH ×6 (00:31→20:58)
[2017-12-06] MEDS: BLOOD SUGAR DIAGNOSTIC STRIP TEST SCH ×3 (00:41→18:45)
[2017-12-06] MEDS: ENALAPRIL 1.25MG/ML VIAL 1ML IV SCH ×4 (02:40→22:50)
[2017-12-06] MEDS ORDERED: VANCOMYCIN 750 MG PREMIX 150 ML IV SCH ×2 (05:00)
[2017-12-06] MEDS: INSULIN LISPRO 100 UNITS/ML SUBCUT SCH ×4 (06:52→18:00)
[2017-12-06] MEDS: CEFEPIME 1,000 MG in DEXTROSE 5% WATER 50 ML IV SCH ×2 (08:26→22:35)
[2017-12-06] MEDS: FAMOTIDINE 20MG/2ML VIAL IV SCH ×2 (08:26→22:36)
[2017-12-06] MEDS: LACTOBACILLUS GG CAPSULE PO SCH (08:27)
[2017-12-06] MEDS: DOCUSATE SODIUM SUGAR FREE 100MG/10ML UDC NG SCH (08:36)
[2017-12-06] MEDS: INSULIN GLARGINE UD 100 UNITS/ML SYR SUBCUT SCH (09:10)
[2017-12-06] MEDS: LEVETIRACETAM 500MG in SODIUM CHLORIDE 0.9% 100ML IV SCH (09:50)
[2017-12-06] MEDS: VANCOMYCIN 1 G PREMIX 200 ML IV SCH ×2 (13:01→23:08)
[2017-12-06] MEDS: ACETAMINOPHEN 650MG SUPP PR PRN (22:19)
[2017-12-06] MEDS: LEVETIRACETAM 500MG PREMIX 100 ML IV SCH (22:35)
[2017-12-07] VITALS (12 sets, daily range): BP systolic 97–134; BP diastolic 50–89
[2017-12-07] MEDS: BLOOD SUGAR DIAGNOSTIC STRIP TEST SCH ×4 (00:41→18:38)
[2017-12-07] MEDS: METOCLOPRAMIDE HCL 10MG/2ML VIAL IV SCH ×4 (00:48→20:15)
[2017-12-07] MEDS: HYDRALAZINE 20MG/ML VIAL IV SCH ×4 (00:49→18:00)
[2017-12-07] MEDS: INSULIN LISPRO 100 UNITS/ML SUBCUT SCH ×4 (00:50→18:00)
[2017-12-07] MEDS: IPRATROPIUM/ALBUTEROL 0.5-3(2.5)MG/3ML NEB HHN SCH ×7 (01:10→23:51)
[2017-12-07] MEDS: ENALAPRIL 1.25MG/ML VIAL 1ML IV SCH ×4 (03:26→20:39)
[2017-12-07 05:05] LABS: BASOPHILS % 0.6 % (0.0-2.0); HEMATOCRIT. 31.8 % (36.0-48.0); HEMOGLOBIN. 10.1 g/dL (12.0-16.0); LYMPHOCYTES % 16.9 % (20.0-50.0); MEAN CORPUSCULAR HEMOGLOBIN 28.3 pg (28.0-32.0); MEAN CORPUSCULAR VOLUME 88.6 fL (81.0-99.0); MEAN PLATELET VOLUME 9.3 fl (7.4-10.4); MONOCYTES % 8.6 % (2.0-8.0); NEUTROPHILS % 70.9 % (40.0-76.0); PLATELET 367 x1000/uL (130-400); RED BLOOD CELL COUNT 3.59 mill/uL (4.2-5.4); RED CELL DISTRIBUTION WIDTH 15.5 % (11.6-14.6)
[2017-12-07] MEDS: VANCOMYCIN 1 G PREMIX 200 ML IV SCH ×2 (06:00→13:57)
[2017-12-07 06:20] LABS: CHLORIDE 108 mEq/L (98-107)
[2017-12-07 06:36] LABS: VANCOMYCIN TROUGH 18.1 ug/mL (5.0-10.0)
[2017-12-07] MEDS: CEFEPIME 1,000 MG in DEXTROSE 5% WATER 50 ML IV SCH ×2 (08:51→20:23)
[2017-12-07] MEDS: LACTOBACILLUS GG CAPSULE PO SCH (08:51)
[2017-12-07] MEDS: FAMOTIDINE 20MG/2ML VIAL IV SCH ×2 (08:51→20:23)
[2017-12-07] MEDS: DOCUSATE SODIUM SUGAR FREE 100MG/10ML UDC NG SCH (09:00)
[2017-12-07] MEDS: LEVETIRACETAM 500MG PREMIX 100 ML IV SCH ×2 (10:01→20:23)
[2017-12-07] MEDS: INSULIN GLARGINE UD 100 UNITS/ML SYR SUBCUT SCH (12:13)
[2017-12-08] VITALS (12 sets, daily range): BP systolic 99–124; BP diastolic 58–70
[2017-12-08] MEDS: METOCLOPRAMIDE HCL 10MG/2ML VIAL IV SCH ×5 (00:23→23:24)
[2017-12-08] MEDS: BLOOD SUGAR DIAGNOSTIC STRIP TEST SCH ×5 (00:24→23:24)
[2017-12-08] MEDS: ENALAPRIL 1.25MG/ML VIAL 1ML IV SCH ×4 (02:27→20:20)
[2017-12-08] MEDS: IPRATROPIUM/ALBUTEROL 0.5-3(2.5)MG/3ML NEB HHN SCH ×5 (03:13→20:42)
[2017-12-08] MEDS: HYDRALAZINE 20MG/ML VIAL IV SCH ×5 (05:24→23:25)
[2017-12-08] MEDS: INSULIN LISPRO 100 UNITS/ML SUBCUT SCH ×5 (05:30→23:28)
[2017-12-08 08:17] LABS: BASOPHILS % 0.4 % (0.0-2.0); EOSINOPHILS % 4.5 % (0.0-5.0); HEMATOCRIT. 30.1 % (36.0-48.0); HEMOGLOBIN. 9.8 g/dL (12.0-16.0); MEAN CORPUSCULAR VOLUME 88.7 fL (81.0-99.0); MEAN PLATELET VOLUME 9.5 fl (7.4-10.4); MONOCYTES % 7.2 % (2.0-8.0); NEUTROPHILS % 70.9 % (40.0-76.0); PLATELET 338 x1000/uL (130-400); RED BLOOD CELL COUNT 3.39 mill/uL (4.2-5.4)
[2017-12-08] MEDS: LACTOBACILLUS GG CAPSULE PO SCH (08:45)
[2017-12-08] MEDS: FAMOTIDINE 20MG/2ML VIAL IV SCH ×2 (08:45→20:20)
[2017-12-08] MEDS: DOCUSATE SODIUM SUGAR FREE 100MG/10ML UDC NG SCH (08:46)
[2017-12-08] MEDS: LEVETIRACETAM 500MG PREMIX 100 ML IV SCH ×2 (09:02→20:32)
[2017-12-08 09:08] LABS: CHLORIDE 108 mEq/L (98-107)
[2017-12-08 09:37] LABS: CREATINE KINASE 116 IU/L (26-192)
[2017-12-08] MEDS: INSULIN GLARGINE UD 100 UNITS/ML SYR SUBCUT SCH (10:59)
[2017-12-08] MEDS: CEFEPIME 1,000 MG in DEXTROSE 5% WATER 50 ML IV SCH ×2 (11:00→20:20)
[2017-12-08] MEDS: ACETAMINOPHEN 650MG/20.3ML UDC PO PRN (18:42)
[2017-12-09] VITALS (11 sets, daily range): BP systolic 114–133; BP diastolic 61–78
[2017-12-09] MEDS: IPRATROPIUM/ALBUTEROL 0.5-3(2.5)MG/3ML NEB HHN SCH ×7 (00:29→23:39)
[2017-12-09] MEDS: ACETAMINOPHEN 650MG/20.3ML UDC PO PRN ×2 (01:05→06:29)
[2017-12-09] MEDS: ENALAPRIL 1.25MG/ML VIAL 1ML IV SCH ×4 (04:09→20:27)
[2017-12-09] MEDS: HYDRALAZINE 20MG/ML VIAL IV SCH ×4 (05:31→23:27)
[2017-12-09] MEDS: METOCLOPRAMIDE HCL 10MG/2ML VIAL IV SCH ×4 (05:31→23:26)
[2017-12-09] MEDS: BLOOD SUGAR DIAGNOSTIC STRIP TEST SCH ×4 (05:31→23:27)
[2017-12-09] MEDS: INSULIN LISPRO 100 UNITS/ML SUBCUT SCH ×4 (05:36→23:27)
[2017-12-09] MEDS: CEFEPIME 1,000 MG in DEXTROSE 5% WATER 50 ML IV SCH ×2 (09:30→20:16)
[2017-12-09] MEDS: LACTOBACILLUS GG CAPSULE PO SCH (09:30)
[2017-12-09] MEDS: FAMOTIDINE 20MG/2ML VIAL IV SCH ×2 (09:30→20:16)
[2017-12-09] MEDS: LEVETIRACETAM 500MG PREMIX 100 ML IV SCH ×2 (09:51→20:26)
[2017-12-09] MEDS: DOCUSATE SODIUM SUGAR FREE 100MG/10ML UDC NG SCH (09:52)
[2017-12-09] MEDS: INSULIN GLARGINE UD 100 UNITS/ML SYR SUBCUT SCH (09:56)
[2017-12-10] VITALS (15 sets, daily range): BP systolic 102–133; BP diastolic 61–79
[2017-12-10] MEDS: ENALAPRIL 1.25MG/ML VIAL 1ML IV SCH ×4 (03:12→21:00)
[2017-12-10] MEDS: IPRATROPIUM/ALBUTEROL 0.5-3(2.5)MG/3ML NEB HHN SCH ×5 (03:54→20:08)
[2017-12-10] MEDS: BLOOD SUGAR DIAGNOSTIC STRIP TEST SCH ×3 (05:25→18:00)
[2017-12-10] MEDS: METOCLOPRAMIDE HCL 10MG/2ML VIAL IV SCH ×3 (05:26→18:00)
[2017-12-10] MEDS: INSULIN LISPRO 100 UNITS/ML SUBCUT SCH ×3 (05:26→18:00)
[2017-12-10] MEDS: HYDRALAZINE 20MG/ML VIAL IV SCH ×3 (05:26→18:00)
[2017-12-10] MEDS: CEFEPIME 1,000 MG in DEXTROSE 5% WATER 50 ML IV SCH ×2 (08:57→20:20)
[2017-12-10] MEDS: FAMOTIDINE 20MG/2ML VIAL IV SCH ×2 (09:14→21:49)
[2017-12-10] MEDS: DOCUSATE SODIUM SUGAR FREE 100MG/10ML UDC NG SCH (09:14)
[2017-12-10] MEDS: LACTOBACILLUS GG CAPSULE PO SCH (09:15)
[2017-12-10] MEDS: LEVETIRACETAM 500MG PREMIX 100 ML IV SCH ×2 (09:15→21:50)
[2017-12-10] MEDS: INSULIN GLARGINE UD 100 UNITS/ML SYR SUBCUT SCH (11:45)
[2017-12-11] VITALS (12 sets, daily range): BP systolic 100–130; BP diastolic 59–76
[2017-12-11] MEDS: IPRATROPIUM/ALBUTEROL 0.5-3(2.5)MG/3ML NEB HHN SCH ×6 (00:08→20:51)
[2017-12-11] MEDS: METOCLOPRAMIDE HCL 10MG/2ML VIAL IV SCH ×4 (00:22→17:31)
[2017-12-11] MEDS: HYDRALAZINE 20MG/ML VIAL IV SCH ×4 (00:22→17:31)
[2017-12-11] MEDS: BLOOD SUGAR DIAGNOSTIC STRIP TEST SCH ×4 (00:41→18:11)
[2017-12-11] MEDS: ENALAPRIL 1.25MG/ML VIAL 1ML IV SCH ×5 (03:00→20:38)
[2017-12-11 05:39] LABS: CHLORIDE 105 mEq/L (98-107)
[2017-12-11 05:49] LABS: BASOPHILS % 0.6 % (0.0-2.0); EOSINOPHILS % 4.2 % (0.0-5.0); HEMATOCRIT. 30.7 % (36.0-48.0); HEMOGLOBIN. 10.2 g/dL (12.0-16.0); LYMPHOCYTES % 19.6 % (20.0-50.0); MEAN CORPUSCULAR HEMOGLOBIN 29.1 pg (28.0-32.0); MEAN PLATELET VOLUME 10.1 fl (7.4-10.4); MONOCYTES % 6.6 % (2.0-8.0); PLATELET 288 x1000/uL (130-400); RED BLOOD CELL COUNT 3.49 mill/uL (4.2-5.4); RED CELL DISTRIBUTION WIDTH 14.9 % (11.6-14.6)
[2017-12-11] MEDS: INSULIN LISPRO 100 UNITS/ML SUBCUT SCH ×4 (06:00→18:00)
[2017-12-11] MEDS: CEFEPIME 1,000 MG in DEXTROSE 5% WATER 50 ML IV SCH ×2 (08:17→21:07)
[2017-12-11] MEDS: ACETAMINOPHEN 650MG/20.3ML UDC PO PRN ×2 (09:06→21:05)
[2017-12-11] MEDS: FAMOTIDINE 20MG/2ML VIAL IV SCH ×2 (09:06→21:05)
[2017-12-11] MEDS: LACTOBACILLUS GG CAPSULE PO SCH (09:06)
[2017-12-11] MEDS: DOCUSATE SODIUM SUGAR FREE 100MG/10ML UDC NG SCH (09:06)
[2017-12-11] MEDS: LEVETIRACETAM 500MG PREMIX 100 ML IV SCH ×2 (09:06→21:05)
[2017-12-11] MEDS: INSULIN GLARGINE UD 100 UNITS/ML SYR SUBCUT SCH (10:21)
[2017-12-12] VITALS (13 sets, daily range): BP systolic 100–128; BP diastolic 53–72
[2017-12-12] MEDS: IPRATROPIUM/ALBUTEROL 0.5-3(2.5)MG/3ML NEB HHN SCH ×5 (00:28→19:45)
[2017-12-12] MEDS: METOCLOPRAMIDE HCL 10MG/2ML VIAL IV SCH ×4 (01:13→18:39)
[2017-12-12] MEDS: ENALAPRIL 1.25MG/ML VIAL 1ML IV SCH ×4 (03:00→21:00)
[2017-12-12] MEDS: HYDRALAZINE 20MG/ML VIAL IV SCH ×4 (05:48→18:39)
[2017-12-12] MEDS: INSULIN LISPRO 100 UNITS/ML SUBCUT SCH ×4 (05:49→18:00)
[2017-12-12] MEDS: BLOOD SUGAR DIAGNOSTIC STRIP TEST SCH ×4 (05:50→18:18)
[2017-12-12] MEDS: CEFEPIME 1,000 MG in DEXTROSE 5% WATER 50 ML IV SCH ×2 (07:48→20:57)
[2017-12-12] MEDS: LEVETIRACETAM 500MG PREMIX 100 ML IV SCH ×2 (09:58→20:57)
[2017-12-12] MEDS: FAMOTIDINE 20MG/2ML VIAL IV SCH ×2 (09:59→20:57)
[2017-12-12] MEDS: LACTOBACILLUS GG CAPSULE PO SCH (09:59)
[2017-12-12] MEDS: DOCUSATE SODIUM SUGAR FREE 100MG/10ML UDC NG SCH (09:59)
[2017-12-12] MEDS: INSULIN GLARGINE UD 100 UNITS/ML SYR SUBCUT SCH (10:00)
[2017-12-13] VITALS (13 sets, daily range): BP systolic 95–128; BP diastolic 51–70
[2017-12-13] MEDS: BLOOD SUGAR DIAGNOSTIC STRIP TEST SCH ×4 (00:24→18:03)
[2017-12-13] MEDS: HYDRALAZINE 20MG/ML VIAL IV SCH ×4 (00:33→18:22)
[2017-12-13] MEDS: METOCLOPRAMIDE HCL 10MG/2ML VIAL IV SCH ×3 (00:34→12:42)
[2017-12-13] MEDS: IPRATROPIUM/ALBUTEROL 0.5-3(2.5)MG/3ML NEB HHN SCH ×4 (02:02→19:55)
[2017-12-13] MEDS: ENALAPRIL 1.25MG/ML VIAL 1ML IV SCH ×4 (02:15→21:00)
[2017-12-13] MEDS: INSULIN LISPRO 100 UNITS/ML SUBCUT SCH ×4 (05:52→18:00)
[2017-12-13] MEDS: LEVETIRACETAM 500MG PREMIX 100 ML IV SCH ×2 (09:10→22:00)
[2017-12-13] MEDS: FAMOTIDINE 20MG/2ML VIAL IV SCH ×2 (09:11→22:00)
[2017-12-13] MEDS: LACTOBACILLUS GG CAPSULE PO SCH (09:11)
[2017-12-13] MEDS: DOCUSATE SODIUM SUGAR FREE 100MG/10ML UDC NG SCH (09:11)
[2017-12-13] MEDS: INSULIN GLARGINE UD 100 UNITS/ML SYR SUBCUT SCH (10:53)
[2017-12-13] MEDS: ACETAMINOPHEN 650MG/20.3ML UDC PO PRN (20:16)
[2017-12-14] VITALS (14 sets, daily range): BP systolic 108–139; BP diastolic 60–76
[2017-12-14] MEDS: ENALAPRIL 1.25MG/ML VIAL 1ML IV SCH ×4 (03:00→21:13)
[2017-12-14] MEDS: INSULIN LISPRO 100 UNITS/ML SUBCUT SCH ×5 (06:00→23:48)
[2017-12-14] MEDS: BLOOD SUGAR DIAGNOSTIC STRIP TEST SCH ×5 (06:00→23:48)
[2017-12-14] MEDS: HYDRALAZINE 20MG/ML VIAL IV SCH ×5 (06:11→23:48)
[2017-12-14] MEDS: DOCUSATE SODIUM SUGAR FREE 100MG/10ML UDC NG SCH (09:09)
[2017-12-14] MEDS: LACTOBACILLUS GG CAPSULE PO SCH (09:10)
[2017-12-14] MEDS: FAMOTIDINE 20MG/2ML VIAL IV SCH ×2 (09:10→21:11)
[2017-12-14] MEDS: LEVETIRACETAM 500MG PREMIX 100 ML IV SCH ×2 (09:10→21:13)
[2017-12-14] MEDS: IPRATROPIUM/ALBUTEROL 0.5-3(2.5)MG/3ML NEB HHN SCH ×3 (09:25→20:02)
[2017-12-14] MEDS: INSULIN GLARGINE UD 100 UNITS/ML SYR SUBCUT SCH (10:46)
[2017-12-15] VITALS (17 sets, daily range): BP systolic 106–134; BP diastolic 57–80
[2017-12-15] MEDS: IPRATROPIUM/ALBUTEROL 0.5-3(2.5)MG/3ML NEB HHN SCH ×3 (01:42→20:18)
[2017-12-15] MEDS: ENALAPRIL 1.25MG/ML VIAL 1ML IV SCH ×4 (03:38→21:20)
[2017-12-15] MEDS: HYDRALAZINE 20MG/ML VIAL IV SCH ×3 (05:31→17:15)
[2017-12-15] MEDS: FAMOTIDINE 20MG/2ML VIAL IV SCH ×2 (08:24→21:19)
[2017-12-15] MEDS: LEVETIRACETAM 500MG PREMIX 100 ML IV SCH ×2 (08:24→21:20)
[2017-12-15] MEDS: DOCUSATE SODIUM SUGAR FREE 100MG/10ML UDC NG SCH (08:24)
[2017-12-15] MEDS: LACTOBACILLUS GG CAPSULE PO SCH (08:24)
[2017-12-15] MEDS ORDERED: DEXTROSE 50% WATER 50ML SYRINGE IV PRN (10:30)
[2017-12-15] MEDS: BLOOD SUGAR DIAGNOSTIC STRIP TEST SCH ×2 (11:08→17:04)
[2017-12-15] MEDS: INSULIN LISPRO 100 UNITS/ML SUBCUT SCH ×2 (11:23→17:04)
[2017-12-15] MEDS ORDERED: LACTULOSE 20G/30ML UDC PO PRN (11:30)
[2017-12-15] MEDS ORDERED: INSULIN LISPRO 100 UNITS/ML SUBCUT SCH (13:00)
[2017-12-16] VITALS (15 sets, daily range): BP systolic 104–122; BP diastolic 58–79
[2017-12-16] MEDS: BLOOD SUGAR DIAGNOSTIC STRIP TEST SCH ×5 (00:12→23:33)
[2017-12-16] MEDS: HYDRALAZINE 20MG/ML VIAL IV SCH ×5 (00:12→23:33)
[2017-12-16] MEDS: IPRATROPIUM/ALBUTEROL 0.5-3(2.5)MG/3ML NEB HHN SCH ×4 (03:05→20:15)
[2017-12-16] MEDS: ENALAPRIL 1.25MG/ML VIAL 1ML IV SCH ×5 (03:50→21:00)
[2017-12-16] MEDS: INSULIN LISPRO 100 UNITS/ML SUBCUT SCH ×5 (06:00→23:33)
[2017-12-16 06:48] LABS: BASOPHILS % 0.4 % (0.0-2.0); EOSINOPHILS % 1.7 % (0.0-5.0); HEMATOCRIT. 31.7 % (36.0-48.0); HEMOGLOBIN. 10.5 g/dL (12.0-16.0); LYMPHOCYTES % 17.1 % (20.0-50.0); MEAN CORPUSCULAR HEMOGLOBIN 29.5 pg (28.0-32.0); MEAN CORPUSCULAR VOLUME 89.2 fL (81.0-99.0); MEAN PLATELET VOLUME 8.8 fl (7.4-10.4); MONOCYTES % 6.8 % (2.0-8.0); PLATELET 247 x1000/uL (130-400); RED BLOOD CELL COUNT 3.55 mill/uL (4.2-5.4); RED CELL DISTRIBUTION WIDTH 15.7 % (11.6-14.6)
[2017-12-16 07:01] LABS: CHLORIDE 108 mEq/L (98-107)
[2017-12-16] MEDS: ACETAMINOPHEN 650MG/20.3ML UDC PO PRN ×2 (08:49→23:32)
[2017-12-16] MEDS: FAMOTIDINE 20MG/2ML VIAL IV SCH ×2 (08:50→20:56)
[2017-12-16] MEDS: LACTOBACILLUS GG CAPSULE PO SCH (08:50)
[2017-12-16] MEDS: LEVETIRACETAM 500MG PREMIX 100 ML IV SCH (08:50)
[2017-12-16] MEDS: DOCUSATE SODIUM SUGAR FREE 100MG/10ML UDC NG SCH (08:50)
[2017-12-16 16:39] LABS: CLARITY URINE CLEAR (CLEAR); COLOR URINE YELLOW (YELLOW); KETONES URINE NEGATIVE (NEGATIVE); LEUKOCYTE ESTERASE URINE TRACE (NEGATIVE); NITRITE URINE NEGATIVE (NEGATIVE); OCCULT BLOOD URINE NEGATIVE (NEGATIVE); PROTEIN URINE TRACE (NEGATIVE); SPECIFIC GRAVITY URINE 1.027 (1.005-1.030)
[2017-12-16] MEDS: LEVETIRACETAM 500MG in SODIUM CHLORIDE 0.9% 100ML IV SCH (20:56)
[2017-12-17] VITALS (19 sets, daily range): BP systolic 85–136; BP diastolic 53–92
[2017-12-17] MEDS: ENALAPRIL 1.25MG/ML VIAL 1ML IV SCH ×4 (03:00→21:08)
[2017-12-17] MEDS: IPRATROPIUM/ALBUTEROL 0.5-3(2.5)MG/3ML NEB HHN SCH ×4 (03:50→19:44)
[2017-12-17] MEDS: HYDRALAZINE 20MG/ML VIAL IV SCH ×3 (05:06→17:47)
[2017-12-17] MEDS: BLOOD SUGAR DIAGNOSTIC STRIP TEST SCH ×3 (05:06→17:52)
[2017-12-17] MEDS: INSULIN LISPRO 100 UNITS/ML SUBCUT SCH ×3 (05:06→17:52)
[2017-12-17 06:30] LABS: BASOPHILS % 0.5 % (0.0-2.0); HEMATOCRIT. 29.5 % (36.0-48.0); HEMOGLOBIN. 9.7 g/dL (12.0-16.0); LYMPHOCYTES % 20.4 % (20.0-50.0); MEAN CORPUSCULAR HEMOGLOBIN 29.4 pg (28.0-32.0); MEAN CORPUSCULAR VOLUME 89.6 fL (81.0-99.0); MEAN PLATELET VOLUME 9.5 fl (7.4-10.4); MONOCYTES % 7.4 % (2.0-8.0); NEUTROPHILS % 69.7 % (40.0-76.0); PLATELET 231 x1000/uL (130-400); RED BLOOD CELL COUNT 3.29 mill/uL (4.2-5.4); RED CELL DISTRIBUTION WIDTH 15.9 % (11.6-14.6)
[2017-12-17 07:06] LABS: CHLORIDE 107 mEq/L (98-107)
[2017-12-17] MEDS: FAMOTIDINE 20MG/2ML VIAL IV SCH ×2 (08:15→21:08)
[2017-12-17] MEDS: DOCUSATE SODIUM SUGAR FREE 100MG/10ML UDC NG SCH (08:15)
[2017-12-17] MEDS: LACTOBACILLUS GG CAPSULE PO SCH (08:16)
[2017-12-17] MEDS: LEVETIRACETAM 500MG in SODIUM CHLORIDE 0.9% 100ML IV SCH ×2 (09:35→21:07)
[2017-12-18] VITALS (15 sets, daily range): BP systolic 100–117; BP diastolic 56–67
[2017-12-18] MEDS: BLOOD SUGAR DIAGNOSTIC STRIP TEST SCH ×4 (00:33→17:36)
[2017-12-18] MEDS: HYDRALAZINE 20MG/ML VIAL IV SCH ×4 (00:33→17:35)
[2017-12-18] MEDS: IPRATROPIUM/ALBUTEROL 0.5-3(2.5)MG/3ML NEB HHN SCH ×4 (01:37→19:39)
[2017-12-18] MEDS: ENALAPRIL 1.25MG/ML VIAL 1ML IV SCH ×4 (03:00→21:00)
[2017-12-18] MEDS: INSULIN LISPRO 100 UNITS/ML SUBCUT SCH ×4 (06:00→17:36)
[2017-12-18] MEDS: LACTOBACILLUS GG CAPSULE PO SCH (08:09)
[2017-12-18] MEDS: FAMOTIDINE 20MG/2ML VIAL IV SCH ×2 (08:09→20:56)
[2017-12-18] MEDS: LEVETIRACETAM 500MG in SODIUM CHLORIDE 0.9% 100ML IV SCH ×2 (09:30→20:56)
[2017-12-18] MEDS ORDERED: ACETAMINOPHEN 650MG/20.3ML UDC PO PRN (12:00)
[2017-12-19] VITALS (12 sets, daily range): BP systolic 109–140; BP diastolic 59–84
[2017-12-19] MEDS: BLOOD SUGAR DIAGNOSTIC STRIP TEST SCH ×4 (00:10→18:00)
[2017-12-19] MEDS: HYDRALAZINE 20MG/ML VIAL IV SCH ×4 (00:14→17:28)
[2017-12-19] MEDS: ENALAPRIL 1.25MG/ML VIAL 1ML IV SCH ×4 (03:00→21:59)
[2017-12-19] MEDS: IPRATROPIUM/ALBUTEROL 0.5-3(2.5)MG/3ML NEB HHN SCH ×4 (03:32→19:56)
[2017-12-19] MEDS: INSULIN LISPRO 100 UNITS/ML SUBCUT SCH ×4 (05:20→18:00)
[2017-12-19 08:29] LABS: BG BASE EXCESS 7.1 mmol/L (-2.0-2.0); BG CARBOXYHEMOGLOBIN 0.3 % (0.5-1.5); BG DEOXYHEMOGLOBIN 2.5 % (0.0-5.0); BG FRACTION INSPIRED OXYGEN 35; BG HCO3 ACT 33.5 mmol/L (22.0-26.0); BG METHEMOGLOBIN 0.2 % (0.0-1.5); BG OXYGEN SATURATION 97.5 % (92.0-98.5); BG PCO2 57.6 mmHg (35.0-45.0); BG PH 7.383 (7.350-7.450); BG PO2 105.3 mmHg (75.0-100.0); BG PRESSURE SUPPORT 12; BG SAMPLE SITE LEFT RADIAL; BG TIDAL VOLUME(mL) 500 mL; BG TOTAL HEMOGLOBIN 10.8 g/dL (12.0-18.0); BG VENT MODE VENT - SIMV; BG VENT RATE 10 set
[2017-12-19] MEDS: LACTOBACILLUS GG CAPSULE PO SCH (08:36)
[2017-12-19] MEDS: FAMOTIDINE 20MG/2ML VIAL IV SCH ×2 (08:36→21:58)
[2017-12-19] MEDS: LEVETIRACETAM 500MG in SODIUM CHLORIDE 0.9% 100ML IV SCH ×2 (09:20→21:59)
[2017-12-19] MEDS ORDERED: LACTULOSE 20G/30ML UDC PO NR (14:45)
[2017-12-19] MEDS: DOCUSATE SODIUM SUGAR FREE 100MG/10ML UDC GT SCH (15:13)
[2017-12-19] MEDS ORDERED: POLYVINYL ALCOHOL OPHTH DROPS 15ML BOTHEYE PRN (16:00)
[2017-12-20] VITALS (12 sets, daily range): BP systolic 109–123; BP diastolic 59–73
[2017-12-20] MEDS: HYDRALAZINE 20MG/ML VIAL IV SCH ×4 (00:24→17:53)
[2017-12-20] MEDS: IPRATROPIUM/ALBUTEROL 0.5-3(2.5)MG/3ML NEB HHN SCH ×4 (01:19→20:25)
[2017-12-20] MEDS: ENALAPRIL 1.25MG/ML VIAL 1ML IV SCH ×4 (04:19→21:20)
[2017-12-20] MEDS: BLOOD SUGAR DIAGNOSTIC STRIP TEST SCH ×4 (06:00→17:53)
[2017-12-20] MEDS: INSULIN LISPRO 100 UNITS/ML SUBCUT SCH ×4 (06:00→17:53)
[2017-12-20] MEDS: LACTOBACILLUS GG CAPSULE PO SCH (08:23)
[2017-12-20] MEDS: DOCUSATE SODIUM SUGAR FREE 100MG/10ML UDC GT SCH (08:23)
[2017-12-20] MEDS: FAMOTIDINE 20MG/2ML VIAL IV SCH ×2 (08:25→20:53)
[2017-12-20] MEDS: LEVETIRACETAM 500MG in SODIUM CHLORIDE 0.9% 100ML IV SCH ×2 (09:46→20:53)
[2017-12-20] MEDS ORDERED: SORBITOL 70% SOLN 30ML PO NR (10:30)
== END 2017-12-20 23:05 | DRG 4 ==
LOC: ER 00:01 → EDBD 00:01 → CVICU 00:46 → EDBEDREQ 01:00 → EDBEDREQSVC 01:00 → ENRESERV 01:57 → 5EST 11-26 01:27
PROVIDERS: ADMIT Family Medicine Adult Medicine; ATTEND Family Medicine Adult Medicine
PROC: 05HY33Z Insertion of Infusion Device into Upper Vein, Percutaneous Approach (ICD-10-PCS; 2017-11-15)
PROC: B54NZZA Ultrasonography of Left Upper Extremity Veins, Guidance (ICD-10-PCS; 2017-11-15)
PROC: 0B110F4 Bypass Trachea to Cutaneous with Tracheostomy Device, Open Approach (ICD-10-PCS; 2017-11-23)
PROC: 5A1955Z Respiratory Ventilation, Greater than 96 Consecutive Hours (ICD-10-PCS; principal; 2017-11-23 17:00)
PROC: 0DH68UZ Insertion of Feeding Device into Stomach, Via Natural or Artificial Opening Endoscopic (ICD-10-PCS; 2017-11-24)
DX: A41.9 Sepsis, unspecified organism (principal); I61.3 Nontraumatic intracerebral hemorrhage in brain stem; I46.9 Cardiac arrest, cause unspecified; J69.0 Pneumonitis due to inhalation of food and vomit; G93.40 Encephalopathy, unspecified; E46 Unspecified protein-calorie malnutrition; R13.12 Dysphagia, oropharyngeal phase; J96.01 Acute respiratory failure with hypoxia; E11.65 Type 2 diabetes mellitus with hyperglycemia; N39.0 Urinary tract infection, site not specified; D64.9 Anemia, unspecified; E87.2 Acidosis; G93.89 Other specified disorders of brain; I10 Essential (primary) hypertension; I16.0 Hypertensive urgency; J45.909 Unspecified asthma, uncomplicated; K21.9 Gastro-esophageal reflux disease without esophagitis; K29.70 Gastritis, unspecified, without bleeding; R74.0 Nonspecific elevation of levels of transaminase and lactic acid dehydrogenase [LDH]; K44.9 Diaphragmatic hernia without obstruction or gangrene; Z82.49 Family history of ischemic heart disease and other diseases of the circulatory system; Z86.73 Personal history of transient ischemic attack (TIA), and cerebral infarction without residual deficits; Z99.11 Dependence on respirator [ventilator] status; Z93.1 Gastrostomy status; Z83.3 Family history of diabetes mellitus; Z79.84 Long term (current) use of oral hypoglycemic drugs; Z68.34 Body mass index [BMI] 34.0-34.9, adult
CPT/HCPCS: 36415; 36569; 36600; 70450; 70496; 71045; 74018; 74176; 76937; 80048; 80053; 80076; 80185; 80202; 80305; 81003; 82140; 82270; 82375; 82550; 82805; 82962; 83605; 83690; 83721; 83735; 84100; 84443; 84484; 85007; 85025; 85027; 85610; 85730; 86705; 86709; 86803; 87040; 87070; 87077; 87086; 87186; 87340; 93005; 93306; 93970; 94002; 94003; 94640; 96365; 96375; 99291; A4216; A6261; C1725; C1893; C9113; G0482; J0330; J0360; J0692; J0696; J1165; J1815; J1953; J2250; J2405; J2543; J2704; J2765; J3010; J3370; J3490; J7030; J7040; J7050; J7060; J7608; J7620; Q9967; A4315